=== PATIENT | female | born 1970 | race Caucasian/White ===

== ENCOUNTER 2019-10-13 21:39 | Emergency (ER) | payer SELFPAY ==
--- NOTE | 2019-10-13 22:59 | ER ---
Nurse's Notes [facility] Name: Hellen Negron Age: 49 yrs Sex: Female : 1970 Arrival Date: 10/13/2019 Time: 21:42 Bed 27 Private MD: Diagnosis: Presentation: 10/12 21:52 Chief complaint: Patient states: "I was at work and i had a feeling that I was going to [facility] pass out. they sat me down and took my blood pressure and told me it was high. they called the EMT's and they suggested I have it come checked out.". Coronavirus screen: Proceed with normal triage. Ebola Screen: Patient negative for fever greater than or equal to 101.5 degrees Fahrenheit, and additional compatible Ebola Virus Disease symptoms. Initial Sepsis Screen: Does the patient meet any 2 criteria? No. Patient's initial sepsis screen is negative. Does the patient have a suspected source of infection? No. Patient's initial sepsis screen is negative. Risk Assessment: Do you want to hurt yourself or someone else? Patient reports no desire to harm self or others. Onset of symptoms was October 13, 2019. 21:52 Method Of Arrival: Ambulatory jd3 21:52 Acuity: MADDIE 3 jd3 Triage Assessment: 22:06 General: Appears in no apparent distress. comfortable, Behavior is calm, cooperative. ls4 Pain: Denies pain. 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 - Social history:: Smoking status: Patient reports the use of cigarette tobacco products, denies chronic smoking, but will smoke occasionally. Screenin:05 Abuse screen: Denies threats or abuse. Denies injuries from another. Nutritional ls4 screening: No deficits noted. Tuberculosis screening: No symptoms or risk factors identified. Fall Risk None identified. Assessment: 22:45 Reassessment: PT CAME OUT OF ROOM AND ASKED WHERE THE SMOKING AREA WAS. I LET PATIENT ls4 KNOW THAT THE FACILITY IS NON SMOKING, BUT I CAN GET HER A NICOTINE PATCH IF SHE IS UNCOMFORTABLE. PT ANSWERED SHARPLY "I DONT WANT A PATCH, I WANT TO GO SMOKE". 22:54 Reassessment: PT STATES THAT SHE DOES NOT WANT TO BE HERE. SHE CAME BECAUSE [facility] MADE HER. SHE STATES THAT SHE DOES NOT HAVE INSURANCE AND CANNOT AFFORD TO GET A BILL AND JUST WANTS TO GO. COUNSELED PT ON RISKS OF HYPERTENSION AND POSSIBLE REASONS TO BECOME DIZZY AND HYPERTENSIVE. PT STATES THAT SHE FEELS FINE AND SHE WAS UPSET WHEN SHE BECAME DIZZY AND PT STATES THAT SHE DOES NOT WANT TO BE EVALUATED. CALIXTO TOTH NOTIFIED AND PT SIGNED AMA. PT AMBULATED TO EXIT WITHOUT DIFFICULTY. Vital Signs: 21:56 BP 170 / 87; Pulse 75; Resp 17 S; Temp 97.0(TE); Pulse Ox 98% on R/A; Weight 68.04 kg jd3 (R); Height 5 ft. 4 in. (162.56 cm) (R); Pain 0/10; 22:54 BP 174 / 86; Pulse 72; Resp 16; Pulse Ox 99% on R/A; Pain 0/10; ls4 21:56 Body Mass Index 25.75 (68.04 kg, 162.56 cm) jd3 ED Course: 21:42 Patient arrived in ED. ds1 21:54 Triage completed. jd3 21:57 Arm band placed on. jd3 22:01 Calixto Toth PA is PHCP. [facility] 22:01 Marcelo Martins MD is Attending Physician. [facility] 22:04 Mirna Walters, RN is Primary Nurse. ls4 22:05 No apparent distress. ls4 22:05 Patient has correct armband on for positive identification. Bed in low position. Call ls4 light in reach. Side rails up X 1. 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 Pulse ox on. NIBP on. Verbal reassurance given. 22:05 No provider procedures requiring assistance completed. ls4 22:59 XRAY Chest (1 view) In Process Unspecified. EDMS Administered Medications: No medications were administered Outcome: 22:59 Patient left the ED. ls4 Signatures: Dispatcher [employer] EDMS Calixto Toth PA PA jmm Sanford Puja ds1 Emanuel Noriega, RN RN jd3 Mirna Walters RN RN ls4
--- NOTE | 2019-10-13 22:59 | EDPHYS ---
Physician Documentation [facility] Name: Hellen Negron Age: 49 yrs Sex: Female : 1970 Arrival Date: 10/13/2019 Time: 21:42 Bed 27 Private MD: ED Physician Marcelo Martins HPI: 10/12 22:40 This 49 yrs old Female presents to ER via Ambulatory with complaints of High jmm Blood Pressure. 22:40 The patient has elevated blood pressure and discovered this. Onset: The jmm symptoms/episode began/occurred gradually, today. This is a 49 year old female with no chronic medical conditions that presents to the ED with complaints of lightheartedness which occurred earlier this evening. Patient was made aware her BP was elevated. Patient denies chest pain, shortness of breath. . 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 - Social history:: Smoking status: Patient reports the use of cigarette tobacco products, denies chronic smoking, but will smoke occasionally. ROS: 22:40 Constitutional: Negative for fever, chills, and weight loss, Cardiovascular: Negative jmm for chest pain, palpitations, and edema, Respiratory: Negative for shortness of breath, cough, wheezing, and pleuritic chest pain. 22:40 Neuro: Positive for near syncope. 22:40 All other systems are negative. Exam: 22:40 Constitutional: This is a well developed, well nourished patient who is awake, alert, jmm and in no acute distress. Head/Face: atraumatic. Eyes: EOMI, no conjunctival erythema appreciated ENT: Moist Mucus Membranes Neck: Trachea midline, Supple Chest/axilla: Normal chest wall appearance and motion. Cardiovascular: Regular rate and rhythm. No edema appreciated Respiratory: Normal respirations, no respiratory distress appreciated Abdomen/GI: Non distended, soft Back: Normal ROM Skin: General appearance color normal MS/ Extremity: Moves all extremities, no obvious deformities appreciated, no edema noted to the lower extremities Neuro: Awake and alert, normal gait Psych: Behavior is normal, Mood is normal, Patient is cooperative and pleasant Vital Signs: 21:56 BP 170 / 87; Pulse 75; Resp 17 S; Temp 97.0(TE); Pulse Ox 98% on R/A; Weight 68.04 kg jd3 (R); Height 5 ft. 4 in. (162.56 cm) (R); Pain 0/10; 22:54 BP 174 / 86; Pulse 72; Resp 16; Pulse Ox 99% on R/A; Pain 0/10; ls4 21:56 Body Mass Index 25.75 (68.04 kg, 162.56 cm) jd3 MDM: 22:19 Patient medically screened. [facility] 22:58 Refusal of service: The patient/guardian displays adequate decision making capability [facility] and despite a detailed discussion of alternatives, benefits, risks, and consequences refuses: all lab tests. ED course: I explained the need for further evaluation for a presyncopal episode. Patient appears competent to make rational decisions. Patient refused further evaluation and signed out against medical advice. . 10/12 22:05 Order name: XRAY Chest (1 view) [facility] 10/12 22:05 Order name: EKG; Complete Time: 22:06 [facility] 10/12 22:05 Order name: O2 Per Protocol; Complete Time: 22:37 [facility] 10/12 22:05 Order name: O2 Sat Monitoring; Complete Time: 22:37 [facility] 10/12 22:38 Order name: Urine Dipstick-Ancillary (obtain specimen); Complete Time: 22:44 [facility] Administered Medications: No medications were administered Disposition: 23:03 Co-signature as Attending Physician, Marcelo Martins MD. memo Disposition: 10/13/19 22:59 Patient has left against medical advice. - Patients states they are going to Home. - Condition is Undetermined. Signatures: Dispatcher [employer] EDMS Marcelo Martins MD MD pkl Mickail, Joel, PA PA jmm Davies, Jonathon, RN RN jd3 Mirna Walters RN RN ls4
--- NOTE | 2019-10-13 23:07 | RAD REPORT ---
EXAM DESCRIPTION: RAD - Chest Single View - 10/13/2019 10:59 pm CLINICAL HISTORY: presyncope Chest pain. COMPARISON: No comparisons FINDINGS: Portable technique limits examination quality. The lungs are grossly clear. The heart is normal in size. No displaced fractures. IMPRESSION: No acute intrathoracic process suspected.
[2019-10-14 14:07] VITALS: TEMP 97
[2019-10-14 14:08] VITALS: BP 174/86; O2SAT 99
== END 2019-10-13 22:59 | disposition left against medical advice (07) ==
LOC: ER 21:39
DX: R03.0 Elevated blood-pressure reading, without diagnosis of hypertension (principal); R55 Syncope and collapse; F17.210 Nicotine dependence, cigarettes, uncomplicated
CPT/HCPCS: 71045; 99284

== ENCOUNTER 2019-10-19 09:25 | Emergency (ER) | payer SELFPAY ==
[2019-10-19 10:05] LABS: Absolute Lymphocytes (CBC) 1.4 K/uL (0.7-4.9); Basophils % 1.4 % (0-1.3); Hematocrit 39.6 % (36.0-45.0); Lymphocytes % 23.1 % (15.3-44.8); MPV 8.1 fL (7.6-11.3); RBC Red Blood Cell Count 4.66 M/uL (3.86-4.86)
[2019-10-19 10:16] LABS: BUN Blood Urea Nitrogen 12 mg/dL (7-18); Bicarbonate 26 mmol/L (21-32); Glucose Level 96 mg/dL (74-106); NT PRO-BNP 511 pg/mL (<125); Potassium 4.1 mmol/L (3.5-5.1); Sodium Level 142 mmol/L (136-145); Troponin (Emerg Dept Use Only) < 0.02 ng/mL (0.0-0.045)
--- OUTSIDE RECORDS SUMMARY | 2019-10-19 11:03 | XMS REPORT | Clinical Summary ---
:1970 Author Organization [facility] Address [address] [place] [place] [address] Care Team Providers Name Role Phone Kash Irizarry [facility] [place] Bullet Assembly Press Operator Emma Pierce [facility] [place] Bullet Assembly Press Operator Unavailable Charbel Lozano RN Clinical Nurse Report Analyst Unavailable Dylan Lee [facility] [place] Bullet Assembly Press Operator Unavailable Ruthie Poole [facility] [place] Bullet Assembly Press Operator Unavailable SHANTANU Porras Clinical Nurse Report Analyst Unavailable Allergies No Known Allergies Medications Medication Sig Dispensed Refills Start Date End Date Status busPIRone (BUSPAR) 15 Take 1 tablet by 270 tablet 1 09/16/2014 Active mg tabletIndications: mouth 3 times Bipolar 2 disorder daily. Additional Information Patient not taking. Reported on 08/25/2019 8:10 AM traZODone (DESYREL) 100 mg Take 1.5 tablets by 135 tablet 1 Active tabletIndications: Bipolar 2 mouth at bedtime disorder nightly. Additional Information Patient not taking. Reported on 08/25/2019 8:10 AM risperiDONE (RISPERDAL) 1 mg Take 1 tablet by 180 tablet 1 Active tabletIndications: Bipolar 2 mouth 2 times daily. disorder Additional Information Patient not taking. Reported on 08/25/2019 8:10 AM lisinopril (PRINIVIL) 10 mg Take 1 tablet by 90 tablet 2 10/19 Active tabletIndications: HTN mouth daily. (hypertension) Additional Information Patient not taking. Reported on 08/25/2019 8:10 AM dicyclomine (BENTYL) 10 mg Take 1 capsule by 10 capsule 0 04/26 Active capsuleIndications: Generalized mouth 4 times daily abdominal pain (before meals and nightly). Additional Information Patient not taking. Reported on 08/25/2019 8:10 AM dexlansoprazole Take 1 90 capsule 0 08/25/2019 Ac tive (DEXILANT) 60 mg delayed capsule by release mouth daily. capsuleIndications: Abdominal pain, epigastric metoclopramide (REGLAN) Take 1 tablet 15 tablet 0 08/25/2019 Active 10 mg tabletIndications: by mouth Abdominal pain, every 8 hours epigastric, Nausea as needed for Other (nausea). gabapentin (NEURONTIN) Take 1 60 capsule 3 10/19/201406/04 / Discontinued 300 mg capsule by 2019 (Therapy capsuleIndications: Lower mouth 2 times completed) back pain daily. benzonatate (TESSALON Take 1 20 capsule 0 01/13/201901/23/ PERLES) 100 mg capsule by 2018 capsuleIndications: URI mouth 3 times with cough and congestion daily as needed for up to 10 days for Cough. ondansetron (ZOFRAN) 4 mg Take 1 tablet 20 tablet 0 05/17/201908/24/ Discontinued tabletIndications: by mouth 2019 ( Therapy Generalized abdominal every 8 hours completed) pain as needed for up to 10 doses for Nausea. nitrofurantoin Take 1 14 capsule 0 05/17/2019 Exp ired mono/m-crystals capsule by 2019 (MACROBID) 100 mg mouth 2 times capsuleIndications: Acute daily for 7 cystitis without days. hematuria sulfamethoxazole-trimetho Take 1 tablet 20 tablet 0 06/03/201906/14/ prim (BACTRIM DS) 800-160 by mouth 2 202 0 mg per tabletIndications: times daily Abscess of chin for 10 days. naproxen (NAPROSYN) 500 Take 1 tablet 30 tablet 0 06/03/2019 0 06/19/ mg tabletIndications: by mouth 2019 Right wrist pain times daily (with meals) for 15 days. 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 ATTENDANT Nausea; Chronic right-s ided low back pain with right-sided sciatica 07/28/2019 Telephonic Family Practice Jeison Be X, NO SHOW E NCOUNTER Encounter (Primary Dx) 07/01/2019 Orders Only Family Practice Jeison Be, Bipolar 2 disorder 06/03/2019 Office Visit Family Practice Jeison Be, Abdominal pain, epigastric (Primary Dx); Abscess of chin ; Right wrist virgen n; Bipolar 2 disor zi; Screening exami [facility] for infectious disease; Screening for c olon cancer 06/02/2019 Refill Psychiatry Charly, Bipolar 2 disor zi MD Yadira 06/02/2019 Refill Psychiatry Charly Bipolar 2 disor zi MD Yadira 06/02/2019 Refill Family Practice Venkata Alan Lower back pain MD Harjinder 06/02/2019 Refill Barbara Mills Generalized MD Home abdominal pain 05/18/2019 - Emergency Emergency Medicine 05/19/2019 05/17/2019 Emergency Emergency Medicine Barbara Mills lized abdominal pain (Primary Dx); MD Home Acute cystitis without hematuria 01/13/2019 Emergency Emergency Medicine Gerson Paiz wi th cough and congestion (Primary Dx); MD Dario Wheezing after 10/18/2018 Family History Medical History Relation Name Comments Heart Father Hypertension Father Heart Maternal Grandfather Heart Maternal Grandmother Hypertension Maternal Grandmother Hypertension Mother Heart Paternal Grandfather Heart Paternal Grandmother Relation Name Status Comments Daughter Alive Father Alive Maternal Grandfather Maternal Grandmother Mother Alive Paternal Grandfather Paternal Grandmother Son Alive Social History Tobacco Use Types Packs/Day Years Used Date Current Every Day Smoker Cigarettes 0.5 30 Smokeless Tobacco: Never Used Tobacco Cessation: Ready to Quit: No; Co unseling Given: Yes Comments: reports currently with smoking cessation progrm thru [facility] Alcohol Use Drinks/Week oz/Week Comments Yes 1 Cans of beer 1.0 1 beer every 3 m [facility] Alcohol Habits Answer Date Recorded How often do you have a drink containing alcohol? Monthly or less 06/03/2019 How many drinks containing alcohol do you have on a 1 or 2 06/03/2019 typical day when you are drinking? How often do you have six or more drinks on one Not asked occasion? Sex Assigned at Date Recorded Not on file Job Start Date Occupation Industry Not on file Not on file Not on file Travel History Travel Start Travel End No recent travel history available. Last Filed Vital Signs Vital Sign Reading Time Taken Comments Blood Pressure 138/85 06/03/2019 8:26 AM CDT Pulse 77 06/03/2019 8:26 AM CDT Temperature 36.9 C (98.5 F) 06/03/2019 8:26 AM CDT Respiratory Rate 18 06/03/2019 8:26 AM CDT Oxygen Saturation 97% 05/18/2019 8:31 PM ORE CR[employer]ING DUST COLLECTOR Inhaled Oxygen Concentration - - Weight 69.9 kg (154 lb) 06/03/2019 8:26 AM CDT Height 162.6 cm (5' 4") 06/03/2019 8:26 AM CDT Body Mass Index 26.43 06/03/2019 8:26 AM CDT Plan of Treatment Health Maintenance Due Date Last Done Comments Cervical Cancer Scrn (3 Yrs) 1989 Breast Cancer Scrn (Yearly) 2008 Colorectal Cancer Scrn Annual (FIT/FOBT) Age 50 to 75 2018 Procedures Procedure Name Priority Date/Time Associated Diagnosis Comme nts [facility]G EKG PROC 12 Routine 05/18/2019 8:37 Results for this LEAD EKG; TRACING PM [employer] procedure are in ONLY the results section. CT ABDOMEN AND STAT 05/17/2019 3:49 Generalized Results f or this PELVIS CONTRAST PM [employer] abdominal pain procedure are in the results section. VBG POC Routine 05/17/2019 3:20 Results for this PM [employer] procedure are i n the results section. POCT URINE DIPSTICK STAT 05/17/2019 3:20 Resu lts for this - PM [employer] procedure are i n the results section. URINE CULTURE STAT 05/17/2019 3:07 Results fo r this PM [employer] procedure are i n the results section. URINALYSIS STAT 05/17/2019 3:07 Results for this PM [employer] procedure are i n the results section. URINALYSIS STAT 05/17/2019 3:07 Results for this PM [employer] procedure are i n the results section. LACTIC ACID STAT 05/17/2019 2:58 Results for this PM [employer] procedure are i n the results section. VBG POC Routine 05/17/2019 2:53 Results for this PM [employer] procedure are i n the results section. BMP POC Routine 05/17/2019 2:51 Results for this PM [employer] procedure are i n the results section. CREATININE POC Routine 05/17/2019 2:51 Results f or this PM [employer] procedure are i n the results section. TROPONIN I POC Routine 05/17/2019 2:50 Results f or this PM [employer] COL[employer]OR procedure are i n the results section. BEDSIDE ULTRASOUND Routine 05/17/2019 2:49 Generalized Resul ts for this PM [employer] abdominal pain procedure are in the results section. LIPASE Add-on 05/17/2019 2:22 Results for this PM [employer] procedure are i n the results section. CBC STAT 05/17/2019 2:22 Results for this PM [employer] COL[employer]OR procedure are i n the results section. LIVER PROFILE STAT 05/17/2019 2:22 Results fo r this PM [employer] procedure are i n the results section. CBC/DIFF STAT 05/17/2019 2:22 Results for this PM [employer] COL[employer] procedure are i n the results section. ECHG EKG PROC 12 Routine 05/17/2019 1:59 Results for this LEAD EKG; TRACING PM [employer]ING [employer] COL[employer]OR procedure are in ONLY the results section. XRAY CHEST 2 VIEWS STAT 01/12/2019 10:25 Wheezing Resul ts for this PM CDT procedure are i n the results section. 12 LEAD EKG Routine 01/12/2019 8:37 Results for this PM CDT procedure are i n the results section. after 10/18/2018 Results 12 LEAD EKG (05/18/2019 8:37 PM ORE CR[employer]ING DUST COLLECTOR) 12 LEAD EKG FOR [facility] Test Date: 2019-05-18 Pat Name: ROCKY NEGRON Depart ent: [id number] Room: Gender: F Developer Advocate: [id number] : 1971-04- 4 Requested By: ALEJANDRA RODRIGUEZ Order Number: [id number] Reading MD: Elio Grullon Measu rements Intervals [place] Rate: 71 P: 70 LA: 142 QRS: 62 QRSD: 83 T: 73 QT: 421 QTc: 457 Interpretive S tatements SINUS RHYTHM LEFT VENTRICULAR HYPERTROPHY NONSPECIFIC T WAVE ABNORMALITY POOR R WAVE PROGRESSION BASELINE ARTIFACT Electronically Signed On 05-21-2019 9:14:17 ORE [employer]ING DUST COLLECTOR by Elio Grullon Specimen Performing Organization Address City/State/Zipcode Phone Number [facility] CT ABDOMEN AND PELVIS CONTRAST (05/17/2019 3:49 PM ORE CRUSHING DUST COLLECTOR) Specimen Impressions Performed At IMPRESSION: SMS 1. Mild circumferential bladder wall t hickening may be due to underdistention, however correlation wit h urinalysis recommended. 2. Sigmoid diverticulosis without dive rticulitis. 3. Nonobstructing tiny calculus in the upper pole of left kidney. Dictated By: Alejandra Borrego MD, 05/17/2019 4:06 PM I have reviewed the study and agree with the findings in this report. Signed By: Wesley Cabrera MD, 020 4:22 PM Narrative Performed At EXAM: CT ABDOMEN AND PELVIS WITH CONTRAS T [facility] DATE: 05/17/2019 3:51 PM INDICATION: Abd pain, acute, generalized . Generalized abdominal pain COMPARISON: None. TECHNIQUE: Volumetric CT of the abdomen and pelvis is acquired following the intravenous administration of contra st. Axial, coronal and sagittal images are provided. IV contrast: 100 mL Omnipaque 300 Enteric contrast: None. DLP: 978 mGy-cm FINDINGS: Lower thorax: Clear. Liver: Normal. Biliary tree: No intra- or extrahepatic biliary ductal dilation. Gallbladder: Normal. Pancreas: Normal. Spleen: Normal. Adrenals: Normal. Kidneys and ureters: Punctate 2 to 3 mm nonobstructing stone noted in the left superior renal pelvis. Bladder: Mild circumferential bladder wa ll thickening noted. Reproductive organs: Uterus and adnexa a re unremarkable. A Bartholin's cyst is noted in the cervix. Gastrointestinal tract: Stomach: Normal. Small bowel: Normal. Colon: Mucosal thickening in the ascendi ng and transverse colon is likely due to underdistention. Sigmoid d iverticulosis without diverticulitis. Appendix: Not seen. No inflammation. Peritoneum, mesentery and retroperitoneu m: No free air, ascites or loculated fluid. Lymph nodes: Normal. Vasculature: Aorta and branches: Normal. IVC and veins: Normal. Portal vasculature: Normal. Bones: No acute abnormality. Degenerativ e changes of lumbar spine centered at L5-S1 with endplate sclerosi s, intervertebral disc space narrowing, and facet arthropathy. Bilate ral neural foraminal narrowing is noted L5. Soft tissues: Tiny fat-containing umbili toy hernia. Procedure Note Interface, Rad/Mammog In - 05/17/2019 4 :27 PM ORE CR[employer]ING DUST COLLECTOR EXAM: CT ABDOMEN AND PELVIS WITH CONTRAST DATE: 05/17/2019 3:51 PM INDICATION: Abd pain, acute, generalized . Generalized abdominal pain COMPARISON: None. TECHNIQUE: Volumetric CT of the abdomen and pelvis is acquired following the intravenous administration of contra st. Axial, coronal and sagittal images are provided. IV contrast: 100 mL Omnipaque 300 Enteric contrast: None. DLP: 978 mGy-cm FINDINGS: Lower thorax: Clear. Liver: Normal. Biliary tree: No intra- or extrahepatic biliary ductal dilation. Gallbladder: Normal. Pancreas: Normal. Spleen: Normal. Adrenals: Normal. Kidneys and ureters: Punctate 2 to 3 mm nonobstructing stone noted in the left superior renal pelvis. Bladder: Mild circumferential bladder wa ll thickening noted. Reproductive organs: Uterus and adnexa a re unremarkable. A Bartholin's cyst is noted in the cervix. Gastrointestinal tract: Stomach: Normal. Small bowel: Normal. Colon: Mucosal thickening in the ascendi ng and transverse colon is likely due to underdistention. Sigmoid d iverticulosis without diverticulitis. Appendix: Not seen. No inflammation. Peritoneum, mesentery and retroperitoneu m: No free air, ascites or loculated fluid. Lymph nodes: Normal. Vasculature: Aorta and branches: Normal. IVC and veins: Normal. Portal vasculature: Normal. Bones: No acute abnormality. Degenerativ e changes of lumbar spine centered at L5-S1 with endplate sclerosi s, intervertebral disc space narrowing, and facet arthropathy. Bilate ral neural foraminal narrowing is noted L5. Soft tissues: Tiny fat-containing umbili toy hernia. IMPRESSION IMPRESSION: 1. Mild circumferential bladder wall th ickening may be due to underdistention, however correlation wit h urinalysis recommended. 2. Sigmoid diverticulosis without diver ticulitis. 3. Nonobstructing tiny calculus in the upper pole of left kidney. Dictated By: Alejandra Borrego MD, 05/17/2019 4:06 PM I have reviewed the study and agree with the findings in this report. Signed By: Wesley Cabrera MD, 020 4:22 PM Performing Organization Address City/State/Zipcode Phone Number SMS POCT VBG POC docked device (05/17/2019 3:20 PM O[employer]ING [employer] COLLECTOR)Only the most recent of2 resultswithin the time period is included. Pathologist Sig nature pH, Neo POC 7.42 7.33 - 7.43 [facility] pCO2,Neo POC 41.4 38 - 50 mmHg [facility] PO2, Venous POC (BKR) 82 (H) 50 - 75 mm Hg [facility] Ionized Calcium POC 1.09 (L) 1.15 - 1.29 [facility] mmol/L HCO3, Neo POC 27 (H) 22 - 26 mmol/L [facility] TCO2 POC 28 21 - 32 mmol/L [facility] Base Excess Neo POC 2 mmol/L [facility] Shivam's Test GURU [facility] Sample Type IVEN [facility] Site RRADIA [facility] % Sat, Neo POC 96 % [facility] Specimen Blood, venous Performing Organization Address [facility] Phone Number [facility] [address] [place] [address] POCT Urine - (05/17/2019 3:20 PM ORE [employer]ING DUST COLLECTOR) Pathologist Sig [facility] Control pass negative Urinalysis (05/17/2019 3:07 PM [employer]ING DUST COLLECTOR) Pathologist Sig nature Color Yellow Colorless, Straw, [facility] Yellow Clarity Clear Clear [facility] Spec Cope, Ur 1.008 1.001 - 1.035 [facility] pH, Ur 7.0 5.0 - 8.0 [facility] Protein, Ur Negative Negative mg/dL [facility] Glucose, Ur Negative Negative mg/dL [facility] Ketone, Ur Negative Negative mg/dL [facility] Bilirubin, Ur Negative Negative mg/dL [facility] Nitrite, Ur Positive (A) Negative [facility] Leukocyte 1+ (A) Negative mg/dL [facility] Blood, Ur 2+ (A) Negative mg/dL [facility] RBC 5 (H) 0 - 4 /HPF [facility] WBC 2 0 - 5 /HPF [facility] Epithelial Cell 1 <=1 /HPF [facility] Mucous Present (A) None seen /HPF [facility] Bacteria Many (A) None seen /HPF [facility] Urobilinogen, Ur <1.0 <1.0 EU/dL [facility] Specimen Urine Performing Organization Address [facility] Phone Number [facility] [address] [place] [address] Urine Culture (05/17/2019 3:07 PM [employer] COLLECTOR) Pathologist Sig [facility] Urine Culture Urogenital ryan [facility] Specimen Urine - Clean Catch [place] Performing Organization Address [facility] Phone Number [facility] [address] [place], [place] [phone] Lactic Acid (05/17/2019 2:58 PM O[employer] COLLECTOR) Pathologist Sig [facility] Lactic Acid 1.5 0.5 - 2.2 mmol/L [facility] Specimen Blood Performing Organization Address [facility] Phone Number [facility] [address] [place] [phone] POCT CREATININE POC docked device (05/17/2019 2:51 PM O[employer] COLLECTOR) Pathologist [facility] Creatinine POC 0.8 0.6 - 1.3 mg/dL [facility] GFR, Estimated 86 (L) >=90 mL/min/1.73 m2 [facility] Specimen Blood, venous Performing Organization Address [facility] Phone Number [facility] [address] [place] [address] POCT BMP POC docked device (05/17/2019 2:51 PM O[employer] CR[employer]ING DUST COLLECTOR) Pathologist Sig [facility] Sodium POC 136 136 - 145 mmol/L [facility] Potassium POC 5.2 (H) 3.5 - 5.1 mmol/L [facility] Chloride POC 102 98 - 107 mmol/L [facility] TCO2 POC 28 21 - 32 mmol/L [facility] Urea Nitrogen POC 12 7 - 18 mg/dL [facility] Glucose POC 109 (H) 74 - 106 mg/dL [facility] Hemoglobin POC 16.3 (H) 12 - 16 g/dL [facility] Hematocrit POC 48.0 (H) 37.0 - 47.0 % [facility] Specimen Blood, venous Performing Organization Address [facility] [place] Phone Number [facility] [address] [place] [phone] POCT TROPONIN I POC docked device (05/17/2019 2:50 PM [employer]ING [employer] COLLECTOR) Pathologist Sig [facility] Troponin POC 0.01 0.00 - 0.08 ng/mL [facility] Specimen Blood, venous Performing Organization Address [facility] Phone Number [facility] [address] [place] [address] Bedside Ultrasound (05/17/2019 2:49 PM O[employer] COL[employer]OR) Narrative Performed At Jordan Bee, MD 020 8:34 PM Bedside Ultrasound Date/Time: 05/17/2019 3:53 PM Performed by: Jordan Bee ResidentM D Authorized by: Barbara Mills MD Consent: Consent obtained: Verbal Consent given by: Patient Alternatives discussed: Delayed treatment, no rosa elena atment and alternative treatment Indications: Indications: Abdominal pain Comments: Bedside Gallbladder US. Indication - abdominal pain. Axial and longitudinal view obtained. No stones or sludge visual ized. Sono Rico's neg. No pericholecystic fluid. No gallbladder wall thi ckening. Performed and interpreted by me. CBC/Diff (05/17/2019 2:22 PM ORE [employer]ING D[employer] COLLECTOR) Pathologist Sig nature WBC 12.6 (H) 4.5 - 11.0 K/uL [facility] RBC 5.48 (H) 4.20 - 5.40 M/uL [facility] Hemoglobin 15.5 12.0 - 16.0 g/dL [facility] Hematocrit 47.9 (H) 37.0 - 47.0 % [facility] MCV 87.4 82.0 - 92.0 fL [facility] MCH 28.3 27.0 - 32.0 pg [facility] MCHC 32.4 32.0 - 36.0 g/dL [facility] RDW 41.1 36.4 - 46.3 fL [facility] Platelet 290 150 - 400 K/uL [facility] Mean Platelet Volume 10.5 9.4 - 12.4 fL [facility] Percent NRBC 0.0 % [facility] Neutrophil 68.9 34.0 - 70.0 % [facility] Lymphs 20.5 20.0 - 50.0 % [facility] Monocytes 8.1 5.0 - 12.0 % [facility] Eos 1.4 0.7 - 5.0 % [facility] Basos 0.8 0.1 - 1.2 % [facility] Immature Granulocytes 0.3 0.0 - 0.5 % [facility] Neutrophils (Absolute) 8.65 (H) 1.56 - 6.13 K/uL [facility] Lymphs (Absolute) 2.57 1.18 - 3.74 K/uL [facility] Monocytes(Absolute) 1.02 (H) 0.24 - 0.36 K/uL [facility] Eos (Absolute) 0.17 0.04 - 0.36 K/uL [facility] Baso (Absolute) 0.10 (H) 0.01 - 0.08 K/uL [facility] Immature Grans (Abs) 0.04 (H) 0.00 - 0.03 K/uL [facility] Absolute NRBC 0.00 K/uL [facility] Specimen Blood Performing Organization Address [facility] Phone Number [facility] [address] [place], [place] [phone] Liver Profile (05/17/2019 2:22 PM O[employer] COLLECTOR) Pathologist Sig nature Total Protein 7.6 6.0 - 8.3 g/dL [facility] Bilirubin, Total 0.6 0.2 - 1.2 mg/dL [facility] Alkaline Phosphatase 101 34 - 104 U/L [facility] AST 29 13 - 39 U/L [facility] Direct Bilirubin 0.1 0.0 - 0.2 mg/dL [facility] ALT 15 7 - 52 U/L [facility] Albumin 4.6 3.7 - 5.3 g/dL [facility] Specimen Blood Performing Organization Address [facility] [place] Phone Number [facility] [address] [place] [phone] Lipase (05/17/2019 2:22 PM O[employer]ING [employer] COLLECTOR) Pathologist Sig nature Lipase 51 11 - 82 U/L [facility] Specimen Blood Performing Organization Address [facility] Phone Number [facility] [address] [place] [address] [phone] 12 LEAD EKG (05/17/2019 1:59 PM ORE [employer]ING DUST COLLECTOR) 12 LEAD EKG FOR [facility] SMS Test Date: 2019-05-17 Pat Name: ROCKY NEGRON Depart ent: [id number] Room: Gender: F Developer Advocate: [id number]/CP : 1970 Requested By: DORIS Saleem Order Number: [id number] Reading MD: Laura Stafford Measu rements Intervals [place] Rate: 73 P: 68 LA: 140 QRS: 59 QRSD: 81 T: 68 QT: 409 QTc: 451 Interpretive S tatements SINUS RHYTHM VOLTAGE CRITERIA FOR LVH Electronically Signed On 05-17-2019 16:54:46 [employer]RE [employer]ING DUST COLLECTOR by Xiomy Stafford Specimen Performing Organization Address City/State/Zipcode Phone Number SMS XRAY CHEST 2 VIEWS (01/12/2019 10:25 PM CDT) Specimen Impressions Performed At IMPRESSION: SMS 1. No acute abnormality. This [facility] radiology report is a prelimin amor resident dictation until finalized by an attending. Changes to this prelimina ry report may occur in an additional preliminary or finalize d version. I have reviewed the study and agree with the findings in this report. Signed By: Gamal Santos M.D., 12/24 10:39 PM Narrative Performed At EXAM: XR CHEST 2 VIEWS SMS DATE: 01/12/2019 10:25 PM INDICATION: cough. Wheezing COMPARISON: Chest radiograph dated 2013 TECHNIQUE: PA and lateral chest radiogra phs FINDINGS: Lines, tubes and hardware: None. Lungs and pleura: No pulmonary edema. Th e lungs are clear and well-inflated. The costophrenic sulci ar e sharp, without pleural effusion. No pneumothorax is identified. Heart and mediastinum: The heart size is normal for technique. The mediastinal contours are normal. Bones and soft tissues: No acute abnorma lity. Procedure Note Interface, Rad/Mammog In - 01/12/2019 10 :44 PM CDT EXAM: XR CHEST 2 VIEWS DATE: 01/12/2019 10:25 PM INDICATION: cough. Wheezing COMPARISON: Chest radiograph dated 2013 TECHNIQUE: PA and lateral chest radiogra phs FINDINGS: Lines, tubes and hardware: None. Lungs and pleura: No pulmonary edema. Th e lungs are clear and well-inflated. The costophrenic sulci ar e sharp, without pleural effusion. No pneumothorax is identified. Heart and mediastinum: The heart size is normal for technique. The mediastinal contours are normal. Bones and soft tissues: No acute abnorma lity. IMPRESSION IMPRESSION: 1. No acute abnormality. This [facility] radiology report is a prelimin amor resident dictation until finalized by an attending. Changes to t his preliminary report may occur in an additional preliminary or finalize d version. I have reviewed the study and agree with the findings in this report. Signed By: Gamal Santos M.D., 12/24 10:39 PM Performing Organization Address City/State/Zipcode Phone Number SMS 12 LEAD EKG (01/12/2019 8:37 PM CDT) 12 LEAD EKG FOR [facility] SMS Test Date: 2019-01-12 Pat Name: ROCKY NEGRON Departm ent: [id number] Room: Gender: Developer Advocate: SWATHI : 1971-04-1 4 Requested By: SANG Corbin Order Number: [id number] Reading MD: Elio Grullon [employer] re[employer] Intervals [place] Rate: 72 P: 58 LA: 125 QRS: 65 QRSD: 76 T: 67 QT: 382 QTc: 418 Interpretive S tatements SINUS RHYTHM MINIMAL VOLTAGE CRITERIA FOR LVH, CONSIDER NORMAL VARI ANT Electronically Signed On 01-16-2019 11:36:35 CDT by Harika Grullon Specimen Performing Organization Address City/State/Zipcode Phone Number [facility] after 10/18/2018 Insurance Payer Benefit Plan / Subscriber ID Effective Phone Address T ype Group Dates [facility] xxxxxx 2019- [phone] [place] [address] [facility] PLAN FINANCIAL xxxxxx 2019- [phone] [employer] [address] [place] [address] Rocky Negron Poli Self 1970 [address] (Home) [place], [place] [phone] (Work)
--- OUTSIDE RECORDS SUMMARY | 2019-10-19 11:04 | XMS REPORT | Continuity of Care Document ---
:1970 Author Organization [facility] t Address [address] [place] [address] Care Team Providers Name Role Phone Sia Bettencourt NP Attending Clinician [place] STEELE, X Attending Clinician Charly STEELE Attending Clinician Waqas STEELE, S Attending Clinician Gene STEELE, L Attending Clinician Unavailable Chencho STEELE, J Attending Clinician Payers Payer Name Policy Type Policy Effective Date Expiration Date Sour ce Number [place] [facility] xxxxxx 2019 2020 Hernandez PLANNING 00:00:00 23:59:59 Health [facility] [facility] INDIGENTxxxxxx-[id number] [phone] [address] [facility] PLANFINANCIAL xxxxxx 2019 2020 Hernandez ASSISTANCE 00:00:00 23:59:59 Health [phone] [place] [address] Problems Condition Condition Condition Status Onset Resolution Last Treating Co mments Source Name Details Category Date Date Treatment Clinician Date Essential Essential Disease Active Cedric ris hypertensi hypertensi 11-30 He alth on on 00:00: 00 Lower back Lower back Disease Active H arris pain pain 7-28 Health 00:00: 00 Fracture Fracture Disease Active 2013-0 Harri s of fourth of fourth 2-25 Heal th metacarpal metacarpal 00:00: bone bone 00 Hand Hand Disease Active [facility] fracture fracture 2-16 Health 00:00: 00 Sciatica Sciatica Disease Active Harri s 2-26 Health 00:00: 00 Bipolar 2 Bipolar 2 Disease Active [facility] disorder disorder Health Sleep Sleep Disease Active [facility] disorder disorder Health Cocaine Cocaine Disease Active [facility] Abuse, h/o Abuse, h/o He alth Tobacco Tobacco Disease Active [facility] abuse abuse Health Allergies, Adverse Reactions, Alerts This patient has no known allergies or adverse reactions. Family History Family Member Diagnosis Comments Start Date Stop Date Source Natural father [facility] lt Natural father Hypertension David Juarez eahalley Maternal grandfather [facility] Maternal grandmother [facility] Maternal grandmother Hypertension [facility] [employer] Natural mother Hypertension David wright Paternal grandfather [facility] Paternal grandmother [facility] is [facility] Social History Social Habit Start Date Stop Date Quantity Comments Source History of tobacco Cigarette Smoker [facility] use History [facility] Alcohol Binge Sex Assigned [facility] alth Cigarettes smoked 2019-08-25 2019-08-25 [facility] current (pack per 00:00:00 00:00:00 day) - Reported Cigarette 2019-08-25 2019-08-25 [facility] pack-years 00:00:00 00:00:00 Alcohol intake 2019-08-25 2019-08-[address] [facility]:00 00:00:00 of alcohol (finding) History [facility] 2019-06-03 2019-06-03 2 [facility] Alcohol Frequency 00:00:00 00:00:00 History [facility] 2019-06-03 2019-06-03 1 [facility] Alcohol Std Drinks 00:00:00 00:00:00 Alcohol Comment 2019-06-03 2019-06-[address] [facility] 00:00:00 00:00:00 months Tobacco Comment 2012-01-14 2012-01-14 [facility]00 with smoking cessation progrm thru [facility] Smoking Status Start Date Stop Date Source Current every day smoker 2019-08-25 00:00:00 [facility] Medications Ordered Filled Start Stop Current Ordering Indication Dosage Frequency Signature Comments Components Source Medication Medication Date Date Medication? Clinician (SIG) Name Name dexlansopra Yes Abdominal 60mg QD Take 1 Hernandez zole 08-24 pain, capsule by [facility] (DEXILANT) 00:00: epigastric mouth 60 mg 00 daily. delayed release capsule metoclopram Yes Nausea 10mg Take 1 Dean rris raven 602 tablet by [facility] (REGLAN) 10 00:00: mouth mg tablet 00 every 8 hours as needed for Other (nausea). naproxen 2019- No Right wrist 500mg Take 1 [facility] (NAPROSYN) 06-02 pain tablet by [facility] 500 mg 00:00: 23:59 mouth 2 tablet 00 :00 times daily (with meals) for 15 days. sulfamethox 2019- No Abscess of 1{tbl} Q.5D Take 1 [facility] azole-trime 06-02 chin [facility] 23:59 mouth 2 (BACTRIM 00 :00 times DS) 800-160 daily for mg per 10 days. tablet dicyclomine Yes Generalized 10mg Take 1 [facility] (BENTYL) 10 05-17 abdominal capsule by [facility] mg capsule 00:00: pain mouth 4 00 times daily (before meals and nightly). ondansetron 2019- No Generalized 4mg Take 1 [facility] (ZOFRAN) 4 05-17 abdominal tablet by [facility] mg tablet 00:00: 00:00 pain mouth 00 :00 every 8 hours as needed for up to 10 doses for Nausea. nitrofurant 2019- No Acute 100mg Q.5D Take 1 H arris oin 05-17 cystitis capsule by [facility] mono/m-jewell 00:00: 23:59 without mouth 2 tals 00 :00 hematuria times (MACROBID) daily for 100 mg 7 days. capsule benzonatate 2018-03- No URI with 100mg Take 1 [facility] (TESSALON 01-23 cough and capsule by [facility] PERL) 100 00:00: 23:59 congestion mouth 3 mg capsule 00 :00 times daily as needed for up to 10 days for Cough. lisinopril Yes HTN 10mg QD Take 1 Harri s (PRINIVIL) 10-19 (hypertensi tablet by [facility] 10 mg 00:00: on) mouth tablet 00 daily. gabapentin 2020- No Lower back 300mg Q.5D Take 1 [facility] (NEURONTIN) 10-19 pain capsule by [facility] 300 mg 00:00: 00:00 mouth 2 capsule 00 :00 times daily. busPIRone Yes Bipolar 2 15mg Take 1 H [facility] (BUSPAR) 15 6-25 disorder tablet by [facility] mg tablet 00:00: mouth 3 00 times daily. traZODone Yes Bipolar 2 150mg Take 1.5 [facility] (DESYREL) 6-25 disorder tablets by [facility] 100 mg 00:00: mouth at tablet 00 bedtime nightly. risperiDONE Yes Bipolar 2 1mg Q.5D Take 1 [facility] (RISPERDAL) 6-25 disorder tablet by [facility] 1 mg tablet 00:00: mouth 2 00 times daily. Vital Signs Vital Name Observation Time Observation Value Comments Source Systolic blood pressure 2019-06-03 08:26:00 138 mm[Hg] [facility] Diastolic blood pressure 2019-06-03 08:26:00 85 mm[Hg] [facility] Heart rate 2019-06-03 08:26:00 77 /min [facility] Body temperature 2019-06-03 08:26:00 36.94 Alayna Emily is [facility] Respiratory rate 2019-06-03 08:26:00 18 /min [facility] Body height 2019-06-03 08:26:00 162.6 cm [facility] Body weight 2019-06-03 08:26:00 69.854 kg [facility] BMI 2019-06-03 08:26:00 26.43 kg/m2 [facility] Oxygen saturation in 2019-05-18 20:31:00 97 /min [facility] Arterial blood by Pulse oximetry Procedures Procedure Date / Time Performed Performing Clinician Sourc e ECHG EKG PROC 12 LEAD EKG; 2019-05-18 20:37:08 Alejandra Rodriguez [facility] TRACING ONLY CT ABDOMEN AND PELVIS 2019-05-17 15:49:33 Jordan Bee [facility] CONTRAST POCT URINE DIPSTICK - 2019-05-17 15:20:00 Jordan Bee [facility] VBG POC 2019-05-17 15:20:00 Barbara Mills [facility] URINALYSIS 2019-05-17 15:07:00 Jordan Bee [facility] URINALYSIS 2019-05-17 15:07:00 Jordan Bee [facility] URINE CULTURE 2019-05-17 15:07:00 Jordan Bee [facility] h LACTIC ACID 2019-05-17 14:58:00 Jordan Bee [facility] VBG POC 2019-05-17 14:53:00 Unknown, [facility] CREATININE POC 2019-05-17 14:51:00 Unknown, Provider [facility] BMP POC 2019-05-17 14:51:00 Unknown, Provider David [facility] TROPONIN I POC 2019-05-17 14:50:00 Unknown, Provider David [facility] BEDSIDE ULTRASOUND 2019-05-17 14:49:13 Jordan Bee alth CBC/DIFF 2019-05-17 14:22:00 Cristal, Jordan Hernandez [facility] LIVER PROFILE 2019-05-17 14:22:00 Cristal, Jordan Hernandez [facility] CBC 2019-05-17 14:22:00 Heft, Jordan Hernandez [facility] h LIPASE 2019-05-17 14:22:00 Barbara Mills [facility] ECHG EKG PROC 12 LEAD EKG; 2019-05-17 13:59:10 Doris Mcgill [facility] TRACING ONLY XRAY CHEST 2 VIEWS 2019-01-12 22:25:40 Savannah Hyatt [facility] 12 LEAD EKG 2019-01-12 20:37:29 Sang Mancilla [facility] Plan of Care Planned Activity Planned Date Details Comments Source Future Scheduled Test 2018 00:00:00 Screening for [facility] malignant neoplasm of colon (procedure) [code = 027079100] Future Scheduled Test 2008 00:00:00 Breast Cancer Scrn [facility] (Yearly) [code = Breast Cancer Scrn (Yearly)] Future Scheduled Test 1989 00:00:00 Screening for [facility] malignant neoplasm of cervix (procedure) [code = 897715823] Encounters Start End Encounter Admission Attending Care Care Encounter Source Date/Time Date/Time Type Type Clinicians Facility Department ID 2019-08-28 2019-08-28 Outpatient [facility] [id number] Hernandez 00:00:00 00:00:00 Health 2019-08-28 2019-08-28 Outpatient [facility] [id number] Hernandez 00:00:00 00:00:00 Health 2019-08-25 2019-08-25 Outpatient [facility] [id number] Hernandez 07:15:26 07:15:26 Health 2019-08-13 2019-08-13 Outpatient [facility] [id number] Hernandez 00:00:00 00:00:00 Health 2019-07-28 2019-07-28 Outpatient [facility] [id number] Hernandez 07:14:20 07:14:20 Health 2019-07-17 2019-07-17 Outpatient [facility] [id number] Hernandez 00:00:00 00:00:00 Health 2019-06-25 2019-06-25 Outpatient [facility] [id number] Hernandez 00:00:00 00:00:00 Health 2019-06-25 2019-06-25 Outpatient [facility] [id number] Hernandez 00:00:00 00:00:00 Health 2019-06-03 2019-06-03 Outpatient [facility] [id number] [facility] 08:29:28 08:29:28 Health 2019-05-18 2019-05-18 Emergency [facility] [id number] Hernandez 20:29:00 20:29:00 Health 2019-05-17 2019-05-17 Emergency [facility] [id number] [facility] 15:04:01 15:04:01 Health 2019-05-17 2019-05-17 Emergency [facility] [id number] Hernandez 14:03:46 14:03:46 Health 2019-01-13 2019-01-13 Emergency [facility] [id number] [place] 02:35:24 02:35:24 Health 2019-01-12 2019-01-12 Emergency [facility] [id number] Hernandez 22:16:47 22:16:47 Health 2018-08-30 2018-08-30 Emergency [facility] [id number] Hernandez 08:57:53 08:57:53 Health Results Test Description Test Time Test Results Result Source Comments Comments 12 LEAD EKG 2019-04-26 12 LEAD EKG FOR [facility] Emily is 7 Conrad Juarez ealth 09:14:21 [facility] Test Date: [id number] Name: ROCKY SCHULTZ Department: 6520Patient ID: [id number] Room: Gender: F Inspector Outside Production: [id number]: 1970 Requested By: ALEJANDRA RODRIGUEZ Order Number: [id number] Reading MD: Elio Grullon MeasurementsIntervals [place] Rate: 71 P: 70PR: 142 QRS: 62QRSD: 83 T: 73QT: 421 QTc: 457 Interpretive StatementsSINUS RHYTHMLEFT VENTRICULAR HYPERTROPHYNONSPECIFIC T WAVE ABNORMALITYPOOR R WAVE PROGRESSIONBASELINE ARTIFACTElectronically Signed On 05-21-2019 9:14:17 NEUROPSYCHOLOGY DIVISION CHIEF by Elio Lucas Urine Culture 2019-05-20 09:42:00 Test Item Value Reference Range Interpretation Comme nts Urine Culture (test code = 630-4) Urogenital ryan [place] [address] LE[address] [id number] 16:54:[address] FOR [facility] Test Date: 2065-43-42Zcp Name: ROCKY SCHULTZ Department: 6520Patient ID: [id number] Room: Gender: F Inspector Outside Production: [id number]/CPDOB: 1970 Requested By: DORIS Goldberg Number: [id number] Reading MD: Laura Stafford MeasurementsIntervals [place] Rate: 73 P: 68PR: 140 QRS: 59QRSD:81 T: 68QT: 409 QTc: 451 Interpretive StatementsSINUS RHYTHMVOLTAGE CRITERIA FOR LVHElectronically Signed On 05-17-2019 16:54:46 NEUROPSYCHOLOGY DIVISION CHIEF [facility] CONTRAST 2019-05-17 16:22:36IMPRESSION: 1. Mild circumferential bladder wall thickening may be due tounderdistention, however correlation with urinalysis recommended.2. Sigmoid diverticulosis without diverticulitis.3. Nonobstructing tiny calculus in the upper pole of left kidney. Dictated By: Alejandra Borrego MD, 05/17/2019 4: 06 PM I have reviewed the study and agree with the findings in this report. Signed By: Wesley Cabrera MD, 05/17/2019 4:22 PM Interface, Rad/Mammog In - 05/17/2019 4:27 PM CSTEXAM: CT ABDOMEN AND PELVIS WITH CONTRASTDATE: 05/17/2019 3:51 PM INDICATION: Abd pain, acute, generalized. Generalized abdominal pain COMPARISON: None.TECHNIQUE: Volumetric CT of the abdomen and pelvis is acquired followingthe intravenous administration of contrast. Axial, coronal and sagittalimages are provided. IV contrast: 100 mL Omnipaque 300Enteric contrast: None.DLP: 978 mGy-cm FINDINGS: Lower thorax: Clear.Liver: Normal.Biliary tree: No intra- or extrahepatic biliary ductal dilation.Gallbladder: Normal.Pancreas: Normal.Spleen: Normal.Adrenals: Normal.Kidneys and ureters: Punctate 2 to 3 mm nonobstructing stonenoted inthe left superior renal pelvis.Bladder: Mild circumferential bladder wall thickening noted.Reproductive organs: Uterus and adnexa are unremarkable. A Bartholin'scyst is noted in the cervix.Gastrointestinal tract:Stomach: Normal.Small bowel: Normal.Colon: Mucosal thickening in the ascending andtransverse colon islikely due to underdistention. Sigmoid diverticulosis withoutdiverticulitis.Appendix: Not seen. No inflammation.Peritoneum, mesentery and retroperitoneum: No free air, ascites orloculated fluid.Lymph nodes: Normal.Vasculature: Aorta and branches: Normal.IVC and veins: Normal.Portal vasculature: Normal.Bones: No acute abnormality. Degenerative changes of lumbar spinecentered at L5-S1 with endplate sclerosis, intervertebral disc spacenarrowing, and facet arthropathy. Bilateral neural foraminal narrowingis noted L5.Soft tissues: Tiny fat- containing umbilical hernia.IMPRESSIONIMPRESSION: 1. Mild circumferential bladder wall thickening may be due tounderdistention, however correlation with urinalysis recommended.2. Sigmoid diverticulosis without diverticulitis.3. Nonobstructing tiny calculus in the upper pole of left kidney. Dictated By: Alejandra Borrego MD, 05/17/2019 4:06 PMI have reviewed the study and agree with the findings in this report.Signed By: Wesley Cabrera MD, 05/17/2019 4:22 PM [facility] [id number] 15:48:00 Test Item Value Reference Range Interpretation Comments Lactic Acid (test code = 52595421) 1.5 mmol/L 0.5-2.2 Lab Interpretation (test code = Normal 75733-0) [facility] [id number] 15:48:00 Test Item Value Reference Range Interpretation Comments Color (test code = 74329181) Yellow Colorless, Straw, Yellow Clarity (test code = Clear Clear 59347837) Spec [place], Ur (test code = 1.008 1.001-1.035 42433809) pH, Ur (test code = 39694232) 7.0 5.0-8.0 Protein, Ur (test code = Negative Negative mg/dL 65766022) Glucose, Ur (test code = Negative Negative mg/dL 58704420) Ketone, Ur (test code = Negative Negative mg/dL 78528159) Bilirubin, Ur (test code = Negative Negative mg/dL 24496787) Nitrite, Ur (test code = Positive Negative A 86313235) Leukocyte (test code = 1+ Negative mg/dL A 93349771) Blood, Ur (test code = 2+ Negative mg/dL A 23107235) RBC (test code = 64316838) 5 0- 4 /HPF H WBC (test code = 53105201) 2 0- 5 /HPF Epithelial Cell (test code = 1 <=1 /HPF 22123915) Mucous (test code = 51477632) Present None seen /HPF A Bacteria (test code = Many None seen /HPF A 78998969) Urobilinogen, Ur (test code = <1.0 <1.0 EU/dL 38321589) Lab Interpretation (test code Abnormal = 82137-4) [facility] [id number] 15:27:00 Test Item Value Reference Range Interpretation Comments Lipase (test code = 00217057) 51 U/L 11-82 Lab Interpretation (test code = Normal 80472-6) [facility] HealthLiver [id number] 15:27:00 Test Item Value Reference Range Interpretation Comments Bilirubin, Total (test code = 0.6 mg/dL 0.2-1.2 2885-2) Alkaline Phosphatase (test code = 101 U/L 34-104 48309689) AST (test code = 43533513) 29 U/L 13-39 Direct Bilirubin (test code = 0.1 mg/dL 0-0.2 1968-7) ALT (test code = 82365210) 15 U/L 7-52 Albumin (test code = 08067-7) 4.6 g/dL 3.7-5.3 Lab Interpretation (test code = Normal 71984-6) [facility] VBG POC docked [id number] 15:24:00 Test Item Value Reference Range Interpretation Comments pH, Neo POC (test code = 7.42 7.33-7.43 59349517) pCO2,Neo POC (test code = 41.4 38- 50 mmHg 03355698) PO2, Venous POC (BKR) (test code 82 50- 75 mm Hg H = 15718494) Ionized Calcium POC (test code = 1.09 mmol/L 1.15-1.29 L 31141977) HCO3, Neo POC (test code = 27 mmol/L 22-26 H 19681911) TCO2 POC (test code = 39051194) 28 mmol/L 21-32 Base Excess Neo POC (test code = 2 mmol/L 27527375) Shivam's Test (test code = GURU 02171721) Sample Type (test code = IVEN 73459179) Site (test code = 24140810) RRADIA % Sat, Neo POC (test code = 96 % 14394673) Lab Interpretation (test code = Abnormal 96561-2) [facility] Urine - [id number] 15:20:00 Test Item Value Reference Range Interpretation Comments Control (test code = 7172) pass (test code = 7173) negative Lab Interpretation (test code = Normal 68129-4) [facility]/[id number] 15:13:00 Test Item Value Reference Range Interpretation Comments WBC (test code = 6690-2) 12.6 K/uL 4.5-11 H RBC (test code = 789-8) 5.48 4.20- 5.40 M/uL H Hemoglobin (test code = 718-7) 15.5 g/dL 12-16 Hematocrit (test code = 4544-3) 47.9 % 37-47 H MCV (test code = 787-2) 87.4 fL 82-92 MCH (test code = 785-6) 28.3 pg 27-32 MCHC (test code = 786-4) 32.4 g/dL 32-36 RDW (test code = 59576-4) 41.1 fL 36.4-46.3 Platelet (test code = 777-3) 290 K/uL 150-400 Mean Platelet Volume (test code = 10.5 fL 9.4-12.4 68747-4) Percent NRBC (test code = 67753086) 0.0 % Neutrophil (test code = 770-8) 68.9 % 34-70 Lymphs (test code = 736-9) 20.5 % 20-50 Monocytes (test code = 5905-5) 8.1 % 5-12 Eos (test code = 713-8) 1.4 % 0.7-5 Basos (test code = 706-2) 0.8 % 0.1-1.2 Immature Granulocytes (test code = 0.3 % 0-0.5 27119923) Neutrophils (Absolute) (test code = 8.65 K/uL 1.56-6.13 H 07322265) Lymphs (Absolute) (test code = 2.57 K/uL 1.18-3.74 16425875) Monocytes(Absolute) (test code = 1.02 K/uL 0.24-0.36 H 55901333) Eos (Absolute) (test code = 0.17 K/uL 0.04-0.36 86972468) Baso (Absolute) (test code = 0.10 K/uL 0.01-0.08 H 01839090) Immature Grans (Abs) (test code = 0.04 K/uL 0-0.03 H 44648693) Absolute NRBC (test code = 0.00 K/uL 58875460) Lab Interpretation (test code = Abnormal 38951-9) [facility] TROPONIN I POC docked [id number] 15:02:00 Test Item Value Reference Range Interpretation Comments Troponin POC (test code = 0.01 ng/mL 0-0.08 42998622) Lab Interpretation (test code = Normal 47007-3) [facility] BMP POC docked [id number] 15:01:00 Test Item Value Reference Range Interpretation Comments Sodium POC (test code = 61351450) 136 mmol/L 136-145 Potassium POC (test code = 5.2 mmol/L 3.5-5.1 H 52591478) Chloride POC (test code = 102 mmol/L 98-107 19724000) TCO2 POC (test code = 91575641) 28 mmol/L 21-32 Urea Nitrogen POC (test code = 12 mg/dL 7-18 17710582) Glucose POC (test code = 50414337) 109 mg/dL 74-106 H Hemoglobin POC (test code = 16.3 g/dL 12-16 H 21435330) Hematocrit POC (test code = 48.0 % 37-47 H 95634462) Lab Interpretation (test code = Abnormal 28092-4) [facility] CREATININE POC docked [id number] 14:57:00 Test Item Value Reference Range Interpretation Comments Creatinine POC (test code = 0.8 mg/dL 0.6-1.3 25202240) GFR, Estimated (test code = 86 >=90 mL/min/1.73 m2 L 77293071) Lab Interpretation (test code = Abnormal 87103-6) [facility] [id number] 14:49:13Jordan Bee ResidentMD 05/17/2019 8:34 PMBedside UltrasoundDate/Time: 05/17/2019 3:53 PMPerformed by: Jordan Bee ResidentMDAuthorized by: Barbara Mills MD Consent: Consent obtained: Verbal Consent given by: Patient Alternatives discussed: Delayed treatment, no treatment and alternative treatmentIndications: Indications: Abdominal painComments: Bedside Gallbladder US. Indication - abdominal pain. Axial and longitudinal view obtained. No stones or sludge visualized. Sono Rico's neg. No pericholecystic fluid. No gallbladder wall thickening. Performed and interpreted by co.[place] [address] LEAD [id number] 11:36:3912 LEAD [facility] Date: 0740-92-22Xdn Name: ROCKY SCHULTZ Department: 6520Patient ID: [id number] Room: Gender: Inspector Outside Production: DJOHNSONDOB: 1970 Requested By: SANG Rubio Number: [id number] Reading MD: Elio Grullon MeasurementsIntervals [place] Rate: 72 P: 58PR: 125 QRS: 65QRSD: 76 T: 67QT: 382 QTc: 418 Interpretive StatementsSINUS RHYTHMMINIMAL VOLTAGE CRITERIA FOR LVH, CONSIDER NORMAL VARIANTElectronically Signed On 01-16-2019 11:36:35 CDT by Elio OlmosInland Northwest Behavioral HealthAY CHEST 2 [id number] 22:39:50IMPRESSION: 1. No acute abnormality. This [facility] radiology report is a preliminary resident dictation untilfinalized by an attending. Changes to this preliminary report may occurin an additional preliminary or finalized version. I have reviewed the study and agree with the findings in this report. Signed By: Gamal Santos M.D., 01/12/2019 10:39 PM Interface, Rad/Mammog In - 01/12/2019 10:44 PM C DTEXAM: XR CHEST 2 VIEWSDATE: 01/12/2019 10:25 PM INDICATION: cough. Wheezing COMPARISON: Chest radiograph dated 07/05/2013TECHNIQUE: PA and lateral chest radiographsFINDINGS:Lines, tubes and hardware: None. Lungs and pleura: No pulmonary edema. The lungs are clear andwell-inflated. The costophrenicsulci are sharp, without pleuraleffusion. No pneumothorax is identified.Heart and mediastinum: The heart size is normal for technique. Themediastinal contours are normal. Bones and soft tissues: No acute abnormality.IMPRESSIONIMPRESSION: 1. No acute abnormality.This [facility] radiology report is a preliminary resident dictation untilfinalized by an attending. Changes to this preliminary report may occurin an additional preliminary or finalized version.I have reviewed the study and agree with the findings in this report.Signed By: Gamal Santos M.D., 01/12/2019 10:39 PM[facility]
--- NOTE | 2019-10-19 11:36 | RAD REPORT ---
EXAM DESCRIPTION: RAD - Chest Single View - 10/19/2019 10:27 am CLINICAL HISTORY: CHEST PAIN COMPARISON: Portable October 12 TECHNIQUE: AP portable chest image was obtained 10/19/2019 10:27 am . FINDINGS: Lungs are clear. Heart and vasculature are normal. No measurable pleural effusion and no p neumothorax. No acute bony abnormality seen. No acute aortic findings suspected. IMPRESSION: No acute cardiopulmonary process. No significant change from comparison.
--- NOTE | 2019-10-19 11:38 | EDPHYS ---
Physician Documentation [facility] Name: Hellen Negron Age: 49 yrs Sex: Female : 1970 Arrival Date: 10/19/2019 Time: 09:26 Bed 16 Private MD: ED Physician Suleiman Ley HPI: 10/18 09:44 This 49 yrs old Female presents to ER via EMS with complaints of Chest Pain > rn 28 y/o. 09:44 The patient or guardian reports chest pain that is located primarily in the substernal rn area. Onset: 1 hour(s) ago. The pain does not radiate. The chest pain is described as a heaviness. Duration: The patient or guardian reports a single episode, that lasted 5 minute(s). Modifying factors: The symptoms are alleviated by nothing. the symptoms are aggravated by nothing. Severity of pain: At its worst the pain was mild in the emergency department the pain has resolved. The patient has not experienced similar symptoms in the past. Reports at rehab facility, experienced chest pain, heaviness, center of chest, single episode that lasted 5 min and resolved on its own. + HTN and noticed high blood pressure for last few weeks. No current complaints, + back to baseline. Reports in rehab for cocaine and ETOH, clean for 17 days. No trauma/cough/sob. . Historical: - Allergies: 11:50 No Known Allergies; jr10 - Home Meds: 11:50 Buspirone Oral [Active]; Dicyclomine Oral [Active]; Risperdal Oral [Active]; Trazodone jr10 Oral [Active]; - PMHx: 11:50 Hypertension; SUBSTANCE ABUSE; jr10 - Immunization history:: Adult Immunizations up to date. - Family history:: not pertinent. - Social history:: Smoking status: Patient reports the use of cigarette tobacco products. - Hospitalizations: : No recent hospitalization is reported. ROS: 09:44 Constitutional: Negative for fever, chills, and weight loss, Eyes: Negative for injury, rn pain, redness, and discharge, Neck: Negative for injury, pain, and swelling, Cardiovascular: Negative for palpitations, and edema, Respiratory: Negative for shortness of breath, cough, wheezing, and pleuritic chest pain, Abdomen/GI: Negative for abdominal pain, nausea, vomiting, diarrhea, and constipation, MS/Extremity: Negative for injury and deformity, Skin: Negative for injury, rash, and discoloration, Neuro: Negative for headache, weakness, numbness, tingling, and seizure. Exam: 09:44 Constitutional: This is a well developed, well nourished patient who is awake, alert, rn and in no acute distress. Head/Face: Normocephalic, atraumatic. Cardiovascular: Regular rate and rhythm. No pulse deficits. Respiratory: No increased work of breathing, no retractions or nasal flaring. Abdomen/GI: soft, non-tender Skin: Warm, dry with normal turgor. Normal color with no rashes, no lesions, and no evidence of cellulitis. MS/ Extremity: Pulses equal, no cyanosis. Neurovascular intact. Full, normal range of motion. Equal circumference. Neuro: Awake and alert, GCS 15, oriented to person, place, time, and situation. Cranial nerves II-XII grossly intact. Motor strength 5/5 in all extremities. Sensory grossly intact. Cerebellar exam normal. Normal gait. 09:47 ECG was reviewed by the Attending Physician. rn Vital Signs: 09:48 BP 164 / 96; Pulse 67; Resp 20; Temp 98.5(O); Pulse Ox 99% ; jr10 10:58 BP 163 / 86; Pulse 57; Resp 17; Pulse Ox 99% on R/A; Pain 0/10; jr10 11:30 BP 152 / 101; Pulse 58; Resp 20; Temp 98.1(O); Pulse Ox 100% on R/A; jr10 MDM: 09:26 Patient medically screened. rn 11:36 Differential diagnosis: acute pericarditis, anxiety, coronary artery disease chest wall rn pain, costochondritis, esophagitis, gastritis, pleurisy, pneumothorax. Data reviewed: vital signs, nurses notes, lab test result(s), EKG, radiologic studies, and as a result, I will discharge patient. Test interpretation: by ED physician or midlevel provider: ECG, plain radiologic studies, CXR neg for acute finding. Counseling: I had a detailed discussion with the patient and/or guardian regarding: the historical points, exam findings, and any diagnostic results supporting the discharge/admit diagnosis, lab results, radiology results, the need for outpatient follow up, to return to the emergency department if symptoms worsen or persist or if there are any questions or concerns that arise at home. Special discussion: I discussed with the patient/guardian in detail that at this point there is no indication for admission to the hospital. It is understood, however, that if the symptoms persist or worsen the patient needs to return immediately for re-evaluation. Based on the history and exam findings, there is no indication for further emergent testing or inpatient evaluation. I discussed with the patient/guardian the need to see the metal numerical control programmer for further evaluation of the symptoms. I discussed with the patient/guardian the need to see the primary care provider for further evaluation of the symptoms. 10/18 09: Order name: Basic Metabolic Panel; Complete Time: 10:10/18 09:27 Order name: CBC with Diff; Complete Time: :10/18 09:27 Order name: NT PRO-BNP; Complete Time: :10/18 09:27 Order name: Troponin (emerg Dept Use Only); Complete Time: :10/18 09:27 Order name: XRAY Chest (1 view); Complete Time: 11:36 10/18 09:27 Order name: EKG; Complete Time: 09:28 10/18 09:27 Order name: Cardiac monitoring; Complete Time: :38 10/18 09:27 Order name: EKG - Nurse/Tech; Complete Time: :10/18 09:27 Order name: IV Saline Lock; Complete Time: :38 10/18 09:27 Order name: Labs collected and sent; Complete Time: :10/18 09:27 Order name: O2 Per Protocol; Complete Time: :10/18 09:27 Order name: O2 Sat Monitoring; Complete Time: :38 rn EC:47 Rate is 61 beats/min. Rhythm is regular. QRS [place] is Normal. [place] interval is normal. QRS rn interval is normal. QT interval is normal. No Q waves. T waves are Normal. No ST changes noted. Clinical impression: Normal ECG. Interpreted by me. Reviewed by me. Administered Medications: No medications were administered Disposition: 10/19/19 11:37 Discharged to Home. Impression: Chest pain, unspecified. - Condition is Stable. - Medication Reconciliation Form, Thank You Letter, Antibiotic Education, Prescription Opioid Use form. - Follow up: Travis Clancy MD; When: As needed; Reason: Recheck today's complaints, Re-evaluation by your physician. - Problem is new. - Symptoms are resolved. Signatures: Dispatcher [employer] EDSuleiman Cesar MD MD rn Rivera, Jessica, RN RN jr10 Corrections: (The following items were deleted from the chart) 11:55 11:37 10/19/2019 11:37 Discharged to Home. Impression: Chest pain, unspecified. jr10 Condition is Stable. Forms are Medication Reconciliation Form, Thank You Letter, Antibiotic Education, Prescription Opioid Use. Follow up: Travis Clancy; When: As needed; Reason: Recheck today's complaints, Re-evaluation by your physician. Problem is new. Symptoms are resolved. rn
--- NOTE | 2019-10-19 11:38 | ER ---
Nurse's Notes [facility] Name: Hellen Negron Age: 49 yrs Sex: Female : 1970 Arrival Date: 10/19/2019 Time: 09:26 Bed 16 Private MD: Diagnosis: Chest pain, unspecified Presentation: 10/18 09:28 Chief complaint: Patient states: Pt presents from EMS from rehab with c/o anterior jr10 chest wall pain lasting approx 5 mins with dyspnea. Pt reports pain has since resolved. Reports family hx of cardiac problems and reports personal hx of cocaine and etoh abuse. Has been in rehab for 17 days. Coronavirus screen: Patient denies a cough. Patient reports shortness of breath or difficulty breathing. Patient denies measured and/or subjective temperature greater than 100.4F prior to today's visit. Patient denies travel on a cruise ship or to a country the [facility] currently lists as an affected area. Patient denies contact with known and/or suspected case of COVID-19. Ebola Screen: No symptoms or risks identified at this time. Initial Sepsis Screen: Does the patient meet any 2 criteria? No. Patient's initial sepsis screen is negative. Does the patient have a suspected source of infection? No. Patient's initial sepsis screen is negative. Risk Assessment: Do you want to hurt yourself or someone else?. Risk Assessment: Do you want to hurt yourself or someone else? Patient reports no desire to harm self or others. Onset of symptoms. 09:28 Method Of Arrival: EMS jr10 09:28 Acuity: MADDIE 3 jr10 Historical: - Allergies: 11:50 No Known Allergies; jr10 - Home Meds: 11:50 Buspirone Oral [Active]; Dicyclomine Oral [Active]; Risperdal Oral [Active]; Trazodone jr10 Oral [Active]; - PMHx: 11:50 Hypertension; SUBSTANCE ABUSE; jr10 - Immunization history:: Adult Immunizations up to date. - Family history:: not pertinent. - Social history:: Smoking status: Patient reports the use of cigarette tobacco products. - Hospitalizations: : No recent hospitalization is reported. Screenin:49 Abuse screen: Denies threats or abuse. Denies injuries from another. Nutritional jr10 screening: No deficits noted. Tuberculosis screening: No symptoms or risk factors identified. Fall Risk No fall in past 12 months (0 pts). No secondary diagnosis (0 pts). IV access (20 points). Ambulatory Aid- None/Bed Rest/Nurse Assist (0 pts). Gait- Normal/Bed Rest/Wheelchair (0 pts) Mental Status- Oriented to own ability (0 pts). Assessment: 09:44 General: Appears in no apparent distress. Behavior is calm, cooperative, appropriate jr10 for age. Pain: Denies pain. Neuro: No deficits noted. Cardiovascular: Reports chest pain, reports one episode of chest pain at approx 0800 this morning, reports pain that felt like a pressure and heavy to anterior chest wall with dyspnea. Pt reports pain last approx 5 mins and subsided on it's own. Pt denies any pain at present. Reports that she is currently in rehab for cocaine and alcohol abuse. Reports that she has been in rehab x17 days. Denies any cardiac hx Denies chest pain, diaphoresis, fatigue, lightheadedness, nausea, palpitations, shortness of breath, syncope, vomiting, Capillary refill < 3 seconds Pulses are all present. Edema is absent. Rhythm is regular. Respiratory: No deficits noted. Airway is patent Respiratory effort is even, unlabored, Respiratory pattern is regular, symmetrical, Breath sounds are clear bilaterally. Denies cough, labored breathing, pain with respiration, pain with cough, pain with movement. GI: No deficits noted. : No deficits noted. Derm: No deficits noted. Musculoskeletal: No deficits noted. Vital Signs: 09:48 BP 164 / 96; Pulse 67; Resp 20; Temp 98.5(O); Pulse Ox 99% ; jr10 10:58 BP 163 / 86; Pulse 57; Resp 17; Pulse Ox 99% on R/A; Pain 0/10; jr10 11:30 BP 152 / 101; Pulse 58; Resp 20; Temp 98.1(O); Pulse Ox 100% on R/A; jr10 ED Course: 09:26 Patient arrived in ED. rn 09:26 Suleiman Ley MD is Attending Physician. rn 09:28 Barbara Benz, SHANTANU is Primary Nurse. jr10 09:30 EKG done, by ED staff, reviewed by Suleiman Ley MD. 3 09:31 Triage completed. jr10 09:31 Arm band placed on left wrist. jr10 09:49 Patient has correct armband on for positive identification. Placed in gown. Bed in low jr10 position. Call light in reach. Side rails up X 1. manager monitoring on. Pulse ox on. NIBP on. 09:49 No provider procedures requiring assistance completed. Inserted saline lock: 20 gauge jr10 in right forearm, using aseptic technique. IV is patent, is intact, Flushed. 10:27 XRAY Chest (1 view) In Process Unspecified. EDMS 11:37 Travis Clancy MD is Referral Physician. rn 11:55 IV discontinued, intact, No redness/swelling at site. Pressure dressing applied. jr10 Administered Medications: No medications were administered Outcome: 11:37 Discharge ordered by . rn 11:54 Discharged to home ambulatory. jr10 11:54 Condition: good 11:54 Discharge instructions given to patient, Instructed on discharge instructions, follow up and referral plans. Demonstrated understanding of instructions, follow-up care. 11:55 Patient left the ED. jr10 Signatures: Dispatcher [employer] EDWV Suleiman Ley MD MD rn Herrera, [facility] Barbara Benz RN RN jr10
[2019-10-19 12:03] VITALS: BP 152/101; TEMP 98.1; O2SAT 100
== END 2019-10-19 11:55 | disposition home or self-care (01) ==
LOC: ER 09:25
DX: R07.9 Chest pain, unspecified (principal); Z72.0 Tobacco use
CPT/HCPCS: 36415; 71045; 80048; 83880; 84484; 85025; 93005; 99284

== ENCOUNTER 2019-10-30 13:52 | Emergency (ER) | payer SELFPAY ==
--- OUTSIDE RECORDS SUMMARY | 2019-10-30 13:55 | XMS REPORT | Clinical Summary ---
:1970 Author Organization [facility] Dist[facility] ict Address [address] [place] [id number] Care Team Providers Name Role Phone Kash Irizarry [facility] [employer] Signal Technician Emma Pierce [facility] [employer] Signal Technician Unavailable Charbel Lozano RN Clinical Nurse Fisher Mussel Unavailable Dylan Lee [facility] [employer] Signal Technician Unavailable Ruthie Poole [facility] [employer] Signal Technician Unavailable SHANTANU Porras Clinical Nurse Fisher Mussel Unavailable Allergies No Known Allergies Medications Medication [...] in, epigastric (Primary Dx); Encounter Michelle D, 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; Chronic right-s ided low back pain with right-sided sciatica 07/28/2019 Telephonic Family Practice Jeison Be X, NO SHOW E NCOUNTER Encounter (Primary Dx) 07/01/2019 Orders Only Family Practice Jeison Be, Bipolar 2 disorder 06/03/2019 Office Visit Family Practice Jeison Be, Abdominal pain, epigastric (Primary Dx); Abscess of chin ; Right wrist virgen n; Bipolar 2 disor zi; Screening exami [facility] [place] for infectious disease; Screening for c olon [...] congestion (Primary Dx); MD Dario Wheezing after 10/29/2018 Family History Medical History Relation Name Comments [...] beer 1.0 1 beer every 3 m [facility] Alcohol Habits Answer Date Recorded How often [...] CDT Oxygen Saturation 97% 05/18/2019 8:31 PM AUDIT CONTROL CLERK Inhaled Oxygen Concentration - - Weight 69.9 [...] Results for this LEAD EKG; TRACING PM AUDIT CONTROL CLERK procedure are in ONLY the results section. CT ABDOMEN AND STAT 05/17/2019 3:49 Generalized Results f or this PELVIS CONTRAST PM AUDIT CONTROL CLERK abdominal pain procedure are in the results section. VBG POC Routine 05/17/2019 3:20 Results for this PM AUDIT CONTROL CLERK procedure are i n the results section. POCT URINE DIPSTICK STAT 05/17/2019 3:20 Resu lts for this - PM AUDIT CONTROL CLERK procedure are i n the results section. URINE CULTURE STAT 05/17/2019 3:07 Results fo r this PM AUDIT CONTROL CLERK procedure are i n the results section. URINALYSIS STAT 05/17/2019 3:07 Results for this PM AUDIT CONTROL CLERK procedure are i n the results section. URINALYSIS STAT 05/17/2019 3:07 Results for this PM AUDIT CONTROL CLERK procedure are i n the results section. LACTIC ACID STAT 05/17/2019 2:58 Results for this PM AUDIT CONTROL CLERK procedure are i n the results section. VBG POC Routine 05/17/2019 2:53 Results for this PM AUDIT CONTROL CLERK procedure are i n the results section. BMP POC Routine 05/17/2019 2:51 Results for this PM AUDIT CONTROL CLERK procedure are i n the results section. CREATININE POC Routine 05/17/2019 2:51 Results f or this PM AUDIT CONTROL CLERK procedure are i n the results section. TROPONIN I POC Routine 05/17/2019 2:50 Results f or this PM AUDIT CONTROL CLERK procedure are i n the results section. BEDSIDE ULTRASOUND Routine 05/17/2019 2:49 Generalized Resul ts for this PM AUDIT CONTROL CLERK abdominal pain procedure are in the results section. LIPASE Add-on 05/17/2019 2:22 Results for this PM AUDIT CONTROL CLERK procedure are i n the results section. CBC STAT 05/17/2019 2:22 Results for this PM AUDIT CONTROL CLERK procedure are i n the results section. LIVER PROFILE STAT 05/17/2019 2:22 Results fo r this PM AUDIT CONTROL CLERK procedure are i n the results section. CBC/DIFF STAT 05/17/2019 2:22 Results for this PM AUDIT CONTROL CLERK procedure are i n the results section. ECHG EKG PROC 12 Routine 05/17/2019 1:59 Results for this LEAD EKG; TRACING PM AUDIT CONTROL CLERK procedure are in ONLY the results section. XRAY CHEST 2 VIEWS STAT 01/12/2019 10:25 Wheezing Resul ts for this PM CDT procedure are i n the results section. 12 LEAD EKG Routine 01/12/2019 8:37 Results for this PM CDT procedure are i n the results section. 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 : 1971-04-1 4 Requested By: ALEJANDRA RODRIGUEZ Order Number: [id number] Reading MD: Elio Grullon Measu rements Intervals [place] Rate: 71 P: 70 IA: 142 QRS: 62 QRSD: 83 T: 73 QT: 421 QTc: 457 Interpretive S tatements SINUS RHYTHM LEFT VENTRICULAR HYPERTROPHY NONSPECIFIC T WAVE ABNORMALITY POOR R WAVE PROGRESSION BASELINE ARTIFACT Electronically Signed On 05-21-2019 9:14:17 AUDIT CONTROL CLERK by Elio Grullon Specimen Performing Organization Address City/State/Zipcode Phone Number [facility] CT ABDOMEN AND PELVIS CONTRAST (05/17/2019 3:49 PM AUDIT CONTROL CLERK) Specimen Impressions Performed At IMPRESSION: SMS 1. [...] CT ABDOMEN AND PELVIS WITH CONTRAS T [facility] DATE: 05/17/2019 3:51 PM INDICATION: Abd pain, [...] Rad/Mammog In - 05/17/2019 4 :27 PM AUDIT CONTROL CLERK EXAM: CT ABDOMEN AND PELVIS WITH CONTRAST [...] VBG POC docked device (05/17/2019 3:20 PM AUDIT CONTROL CLERK)Only the most recent of2 resultswithin the time [...] 2 mmol/L [facility] Shivam's Test GURU [facility] Sample Type IVEN [facility] Site RRADIA [facility] % Sat, Neo POC 96 % [facility] Specimen Blood, venous Performing Organization Address [facility] Phone Number [facility] [address] [place] [address] POCT Urine - (05/17/2019 3:20 PM AUDIT CONTROL CLERK) Pathologist Sig [facility] Control pass negative Urinalysis (05/17/2019 3:07 PM AUDIT CONTROL CLERK) Pathologist Sig nature Color Yellow Colorless, Straw, [facility] Yellow Clarity Clear Clear [facility] Spec [place], Ur 1.008 1.001 - 1.035 [facility] [...] [facility] Specimen Urine Performing Organization Address [facility] Phone Number [facility] [address] [place] [address] Urine Culture (05/17/2019 3:07 PM AUDIT CONTROL CLERK) Pathologist Sig [facility] Urine Culture Urogenital ryan [facility] Specimen Urine - Clean Catch [place] Stream Performing Organization Address [facility] Phone Number [facility] [address] [place], [place] [phone] Lactic Acid (05/17/2019 2:58 PM AUDIT CONTROL CLERK) Pathologist Sig [facility] Lactic Acid 1.5 0.5 - 2.2 mmol/L [facility] Specimen Blood Performing Organization Address [facility] Phone Number [facility] [address] [place] [address] POCT CREATININE POC docked device (05/17/2019 2:51 PM AUDIT CONTROL CLERK) Pathologist [facility] Creatinine POC 0.8 0.6 - 1.3 mg/dL [facility] GFR, Estimated 86 (L) >=90 mL/min/1.73 m2 [facility] Specimen Blood, venous Performing Organization Address [facility] Phone Number [facility] [address] [place] [address] POCT BMP POC docked device (05/17/2019 2:51 PM AUDIT CONTROL CLERK) Pathologist Sig [facility] Sodium POC 136 136 - 145 mmol/L [facility] Potassium POC 5.2 (H) 3.5 - 5.1 mmol/L [facility] Chloride POC 102 98 - 107 mmol/L [facility] TCO2 POC 28 21 - 32 mmol/L [facility] Urea Nitrogen POC 12 7 - 18 mg/dL [facility] Glucose POC 109 (H) 74 - 106 mg/dL [facility] Hemoglobin POC 16.3 (H) 12 - 16 g/dL [facility] Hematocrit POC 48.0 (H) 37.0 - 47.0 % [facility] Specimen Blood, venous Performing Organization Address [facility] Phone Number [facility] [address] [place] [address] POCT TROPONIN I POC docked device (05/17/2019 2:50 PM AUDIT CONTROL CLERK) Pathologist Sig [facility] Troponin POC 0.01 0.00 - 0.08 ng/mL [facility] Specimen Blood, venous Performing Organization Address [facility] Phone Number [facility] [address] [place] [phone] Bedside Ultrasound (05/17/2019 2:49 PM AUDIT CONTROL CLERK) Narrative Performed At Jordan Bee, MD 020 [...] interpreted by me. CBC/Diff (05/17/2019 2:22 PM AUDIT CONTROL CLERK) Pathologist Sig nature WBC 12.6 (H) 4.5 [...] [facility] Specimen Blood Performing Organization Address [facility] Phone Number [facility] [address] [place], [place] [phone] Liver Profile (05/17/2019 2:22 PM AUDIT CONTROL CLERK) Pathologist Sig nature Total Protein 7.6 6.0 [...] [facility] Specimen Blood Performing Organization Address [facility] Phone Number [facility] [address] [place] [address] Lipase (05/17/2019 2:22 PM AUDIT CONTROL CLERK) Pathologist Sig nature Lipase 51 11 - 82 U/L [facility] Specimen Blood Performing Organization Address [facility] Phone Number [facility] [address] [place] [address] [phone] 12 LEAD EKG (05/17/2019 1:59 PM AUDIT CONTROL CLERK) 12 LEAD EKG FOR [facility] SMS Test Date: 2019-05-17 Pat Name: ROCKY NEGRON Depart ent: [id number] Room: Gender: F Power Transmission Engineer: [id number]/CP : 1970 Requested By: DORIS Saleem Order Number: [id number] Reading MD: Laura Stafford Measu rements Intervals [place] Rate: 73 P: 68 IA: 140 QRS: 59 QRSD: 81 T: 68 QT: 409 QTc: 451 Interpretive S tatements SINUS RHYTHM VOLTAGE CRITERIA FOR LVH Electronically Signed On 05-17-2019 16:54:46 AUDIT CONTROL CLERK by Xiomy Stafford Specimen Performing Organization Address City/State/Zipcode Phone Number SMS XRAY CHEST 2 VIEWS (01/12/2019 10:25 PM CDT) Specimen Impressions Performed At IMPRESSION: SMS 1. No acute abnormality. This [facility] radiology report is a prelimin amor resident [...] IMPRESSION IMPRESSION: 1. No acute abnormality. This [facility] radiology report is a prelimin amor resident [...] 12 LEAD EKG FOR [facility] Conrad Oropeza [facility] SMS Test Date: 2019-01-12 Pat Name: ROCKY NEGRON Departm ent: [id number] Room: Gender: Power Transmission Engineer: [id number] : 1971-04-1 4 Requested By: SANG Corbin Order Number: [id number] Reading MD: Elio Grullon Measu rements Intervals [place] Rate: 72 P: 58 IA: 125 QRS: 65 QRSD: 76 T: 67 QT: 382 QTc: 418 Interpretive S tatements SINUS RHYTHM MINIMAL VOLTAGE CRITERIA FOR LVH, CONSIDER NORMAL VARI ANT Electronically Signed On 01-16-2019 11:36:35 CDT by Harika Grullon Specimen Performing Organization Address City/State/Zipcode Phone Number [facility] after 10/29/2018 Insurance Payer Benefit Plan / Subscriber ID Effective Phone Address T ype Group Dates [facility] FAMILY xxxxxx 2019- [phone] [place] [address] [facility] PLAN FINANCIAL xxxxxx 2019- [phone] [employer] [address] [place] [address] Rocky Negron Poli Self 1970 [address] [place] (Home) [place], [place] [phone] [id number] (Work)
--- OUTSIDE RECORDS SUMMARY | 2019-10-30 13:56 | XMS REPORT | Continuity of Care Document ---
:1970 Author Organization [facility] t Address [address] [place] [address] Care Team Providers Name Role Phone Sia Bettencourt NP Attending Clinician [place] STEELE, X Attending Clinician Charly STEELE Attending Clinician Waqas STEELE, S Attending Clinician Gene STEELE, L Attending Clinician Unavailable Chencho STEELE, J Attending Clinician Payers Payer Name Policy Type Policy Effective Date Expiration Date Sour ce Number [place] [facility] x[facility]x 2019 2020 Hernandez PLANNING 00:00:00 23:59:59 Health [facility] [facility] [employer] INDIGENTxxxxxx-[id number] [phone] [address] [employer] x[employer]x 2019 2020 Hernandez ASSISTANCE 00:00:00 23:59:59 Health [phone] [place] [address] Problems Condition Condition Condition Status Onset Resolution [...] bone bone 00 Hand Hand Disease Active [place] fracture fracture 2-16 Health 00:00: 00 Sciatica Sciatica Disease Active Harri [facility] 2-26 Health 00:00: 00 Bipolar 2 Bipolar 2 Disease Active [facility] disorder disorder Health Sleep Sleep Disease Active [place] disorder disorder Health Cocaine Cocaine Disease Active [place] Abuse, h/o Abuse, h/o He alth Tobacco Tobacco Disease Active [place] abuse abuse Health Allergies, Adverse Reactions, Alerts This patient has no known allergies or adverse reactions. Family History Family Member Diagnosis Comments Start Date Stop Date Source Natural father [facility] Hea lt Natural father Hypertension David Juarez eahalley Maternal grandfather [facility] is Health Maternal grandmother [facility] Maternal grandmother Hypertension [facility] [employer] Natural mother Hypertension David wright Paternal grandfather [facility] Emily is Health Paternal grandmother Heart Emily is Health Social History Social Habit Start Date Stop Date Quantity Comments Source History of tobacco Cigarette Smoker [facility] use History [facility] Alcohol Binge Sex Assigned At [facility] alth Cigarettes smoked 2019-08-25 2019-08-25 [facility] current (pack per 00:00:00 00:00:00 day) - Reported Cigarette 2019-08-25 2019-08-25 [facility] pack-years 00:00:00 00:00:00 Alcohol intake 2019-08-25 2019-08-25 Current drinker [facility] 00:00:00 00:00:00 of alcohol (finding) History [facility] 2019-06-03 2019-06-03 2 [facility] Alcohol Frequency 00:00:00 00:00:00 History [facility] 2019-06-03 2019-06-03 1 [facility] Alcohol Std Drinks 00:00:00 00:00:00 Alcohol Comment 2019-06-03 2019-06-03 1 beer every 3 [facility] 00:00:00 00:00:00 months Tobacco Comment 2012-01-14 2012-01-14 [facility] with smoking cessation progrm thru [facility] Smoking Status Start Date Stop Date Source Current every day smoker 2019-08-25 00:00:[address] [facility] Medications Ordered Filled Start Stop Current Ordering Indication Dosage Frequency Signature Comments Components Source Medication Medication Date Date Medication? Clinician (SIG) Name Name dexlansopra Yes Abdominal 60mg QD Take 1 Hernandez zole 08-24 pain, capsule by [facility] (DEXILANT) 00:00: epigastric mouth 60 mg 00 daily. delayed release capsule metoclopram Yes Nausea 10mg Take 1 Dean rris raven 602 tablet by [facility] (REGLAN) 10 00:00: mouth mg tablet 00 every 8 hours as needed for Other (nausea). naproxen 2019- No Right wrist 500mg Take 1 [place] (NAPROSYN) 06-02 pain tablet by [facility] 500 mg 00:00: 23:59 mouth 2 tablet 00 :00 times daily (with meals) for 15 days. sulfamethox 2019- No Abscess of 1{tbl} Q.5D Take 1 [place] azole-trime 06-02 chin [facility] 23:59 mouth 2 (BACTRIM 00 :00 times DS) 800-160 daily for mg per 10 days. tablet dicyclomine Yes Generalized 10mg Take 1 [place] (BENTYL) 10 05-17 abdominal capsule by [facility] mg capsule 00:00: pain mouth 4 00 times daily (before meals and nightly). ondansetron 2019- No Generalized 4mg Take 1 [place] (ZOFRAN) 4 05-17 abdominal tablet by [facility] mg tablet 00:00: 00:00 pain mouth 00 :00 every 8 hours as needed for up to 10 doses for Nausea. nitrofurant 2019- No Acute 100mg Q.5D Take 1 H arris oin 05-17 cystitis capsule by [facility] mono/m-jewell 00:00: 23:59 without mouth 2 tals 00 :00 hematuria times (MACROBID) daily for 100 mg 7 days. capsule benzonatate 2018-03- No URI with 100mg Take 1 [place] (TESSALON 01-23 cough and capsule by [facility] PERL) 100 00:00: 23:59 congestion mouth 3 mg capsule 00 :00 times daily as needed for up to 10 days for Cough. lisinopril Yes HTN 10mg QD Take 1 [facility] (PRINIVIL) 10-19 (hypertensi tablet by [facility] 10 mg 00:00: on) mouth tablet 00 daily. gabapentin 2020- No Lower back 300mg Q.5D Take 1 [place] (NEURONTIN) 10-19 pain capsule by [facility] 300 mg 00:00: 00:00 mouth 2 capsule 00 :00 times daily. busPIRone Yes Bipolar 2 15mg Take 1 [facility] (BUSPAR) 15 6-25 disorder tablet by [facility] mg tablet 00:00: mouth 3 00 times daily. traZODone Yes Bipolar 2 150mg Take 1.5 [place] (DESYREL) 6-25 disorder tablets by [facility] 100 mg 00:00: mouth at tablet 00 bedtime nightly. risperiDONE Yes Bipolar 2 1mg Q.5D Take 1 [place] (RISPERDAL) 6-25 disorder tablet by [facility] 1 mg tablet 00:00: mouth 2 00 times daily. Vital Signs Vital Name Observation Time Observation Value Comments Source Systolic blood pressure 2019-06-03 08:26:00 138 mm[Hg] [facility] Diastolic blood pressure 2019-06-03 08:26:00 85 mm[Hg] [facility] Heart rate 2019-06-03 08:26:00 77 /min formerly [facility] Body temperature 2019-06-03 08:26:00 36.94 Alayna Emily is [facility] Respiratory rate 2019-06-03 08:26:00 18 /min [facility] Body height 2019-06-03 08:26:00 162.6 cm formerly [facility] Body weight 2019-06-03 08:26:00 69.854 kg formerly [facility] BMI 2019-06-03 08:26:00 26.43 kg/m2 formerly [facility] Oxygen saturation in 2019-05-18 20:31:00 97 /min [facility] Arterial blood by Pulse oximetry Procedures Procedure Date / Time Performed Performing Clinician Sourc e ECH[facility] EKG PROC 12 LEAD EKG; 2019-05-18 20:37:08 Alejandra Rodriguez [facility] TRACING ONLY CT ABDOMEN AND PELVIS 2019-05-17 15:49:33 Jordan Bee [facility] CONTRAST POCT URINE DIPSTICK - 2019-05-17 15:20:00 Jordan Bee [facility] VBG POC 2019-05-17 15:20:00 Barbara Mills [facility] URINALYSIS 2019-05-17 15:07:00 Jordan Bee [facility] URINALYSIS 2019-05-17 15:07:00 Jordan Bee [facility] URINE CULTURE 2019-05-17 15:07:00 Jordan Bee [facility] h LACTIC ACID 2019-05-17 14:58:00 Jordan Bee [facility] VBG POC 2019-05-17 14:53:00 Unknown, [facility]AT[facility] 2019-05-17 14:51:00 Unknown, [facility] BMP POC 2019-05-17 14:51:00 Unknown, Provider David [facility] TROPONIN I POC 2019-05-17 14:50:00 Unknown, Provider David [facility] BEDSIDE ULTRASOUND 2019-05-17 14:49:13 Jordan Bee alth CBC/DIFF 2019-05-17 14:22:00 Cristal, Jordan Hernandez [facility] LIVER PROFILE 2019-05-17 14:22:00 Cristal, Jordan Hernandez [facility] CBC 2019-05-17 14:22:00 Heft, Jordan Hernandez [facility] h LIPASE 2019-05-17 14:22:00 Barbara Mills [facility] ECHG EKG PROC 12 LEAD EKG; 2019-05-17 13:59:10 Doris Mcgill [facility] TRACING ONLY XRAY CHEST 2 VIEWS 2019-01-12 22:25:40 Savannah Hyatt [facility] 12 LEAD EKG 2019-01-12 20:37:29 Sang Mancilla [facility] Plan of Care Planned Activity Planned Date Details Comments Source Future Scheduled Test 2018 00:00:[address] [facility] malignant neoplasm of colon (procedure) [code = 674716216] Future Scheduled Test 2008 00:00:[address] [facility] (Yearly) [code = Breast Cancer Scrn (Yearly)] Future Scheduled Test 1989 00:00:[address] [facility] malignant neoplasm of cervix (procedure) [code = 462230913] Encounters Start End Encounter Admission Attending Care Care Encounter Source Date/Time Date/Time Type Type Clinicians Facility Department ID 2019-08-28 2019-08-28 Outpatient [facility] [id number] Hernandez 00:00:00 00:00:00 Health 2019-08-28 2019-08-28 Outpatient [facility] [id number] Hernandez 00:00:00 00:00:00 Health 2019-08-25 2019-08-25 Outpatient [facility] [id number] Hernandez 07:15:26 07:15:26 Health 2019-08-13 2019-08-13 Outpatient [facility] [id number] Hernandez 00:00:00 00:00:00 Health 2019-07-28 2019-07-28 Outpatient [facility] [id number] Hernandez 07:14:20 07:14:20 Health 2019-07-17 2019-07-17 Outpatient [facility] [id number] Hernandez 00:00:00 00:00:00 Health 2019-06-25 2019-06-25 Outpatient [facility] [id number] Hernandez 00:00:00 00:00:00 Health 2019-06-25 2019-06-25 Outpatient [facility] [id number] Hernandez 00:00:00 00:00:00 Health 2019-06-03 2019-06-03 Outpatient [facility] [id number] [place] 08:29:28 08:29:28 Health 2019-05-18 2019-05-18 Emergency [facility] [id number] Hernandez 20:29:00 20:29:00 Health 2019-05-17 2019-05-17 Emergency [facility] [id number] [place] 15:04:01 15:04:01 Health 2019-05-17 2019-05-17 Emergency [facility] [id number] Hernandez 14:03:46 14:03:46 Health 2019-01-13 2019-01-13 Emergency [facility] [id number] [place] 02:35:24 02:35:24 Health 2019-01-12 2019-01-12 Emergency [facility] [id number] Hernandez 22:16:47 22:16:47 Health 2018-08-30 2018-08-30 Emergency [facility] [id number] Hernandez 08:57:53 08:57:53 Health Results Test Description Test Time Test Results Result Source Comments Comments 12 LEAD EKG 2019-04-26 12 LEAD EKG FOR [facility] Emily is 7 Conrad Juarez ealth 09:14:21 [facility] Test Date: [id number] Name: ROCKY SCHULTZ Department: 6520Patient ID: [id number] Room: Gender: F Ham Doctor: [id number]: 1970 Requested By: ALEJANDRA RODRIGUEZ Order Number: [id number] Reading MD: Elio Grullon MeasurementsIntervals Amma Rate: 71 P: 70PR: 142 QRS: 62QRSD: 83 T: 73QT: 421 QTc: 457 Interpretive StatementsSINUS RHYTHMLEFT VENTRICULAR HYPERTROPHYNONSPECIFIC T WAVE ABNORMALITYPOOR R WAVE PROGRESSIONBASELINE ARTIFACTElectronically Signed On 05-21-2019 9:14:17 TRUCK GREASER by Elio Lucas Urine Culture 2019-05-20 09:42:00 Test Item Value Reference Range Interpretation Comme nts Urine Culture (test code = 630-4) Urogenital r[place] [address] LEAD [id number] 16:54:4712 LEAD EKG FOR [facility] Test Date: 4069-91-42Unz Name: RCOKY SCHULTZ Department: 6520Patient ID: [id number] Room: Gender: F Ham Doctor: [id number]/CPDOB: 1970 Requested By: DORIS Goldberg Number: [id number] Reading MD: Laura Stafford MeasurementsIntervals Amma Rate: 73 P: 68PR: 140 QRS: 59QRSD:81 T: 68QT: 409 QTc: 451 Interpretive StatementsSINUS RHYTHMVOLTAGE CRITERIA FOR LVHElectronically Signed On 05-17-2019 16:54:46 TRUCK GREASER [facility]VIS CONTRAST 2019-05-17 16:22:36IMPRESSION: 1. [...] By: Wesley Cabrera MD, 05/17/2019 4:[address] [facility] [id number] 15:48:00 Test Item Value Reference Range Interpretation Comments Lactic Acid (test code = 78206836) 1.5 mmol/L 0.5-2.2 Lab Interpretation (test code = Normal 55483-7) [facility] HospitalRtnpemEpxxlgnyck0170-95-82 15:48:00 Test Item Value Reference Range Interpretation Comments Color (test code = 78084253) Yellow Colorless, Straw, Yellow Clarity (test code = Clear Clear 71250141) Spec Miles, Ur (test code = 1.008 1.001-1.035 42854524) pH, Ur (test code = 01444019) 7.0 5.0-8.0 Protein, Ur (test code = Negative Negative mg/dL 08052537) Glucose, Ur (test code = Negative Negative mg/dL 39008124) Ketone, Ur (test code = Negative Negative mg/dL 77519023) Bilirubin, Ur (test code = Negative Negative mg/dL 40382200) Nitrite, Ur (test code = Positive Negative A 94311503) Leukocyte (test code = 1+ Negative mg/dL A 88980300) Blood, Ur (test code = 2+ Negative mg/dL A 86574161) RBC (test code = 42613464) 5 0- 4 /HPF H WBC (test code = 35763267) 2 0- 5 /HPF Epithelial Cell (test code = 1 <=1 /HPF 49703457) Mucous (test code = 57042640) Present None seen /HPF A Bacteria (test code = Many None seen /HPF A 35626552) Urobilinogen, Ur (test code = <1.0 <1.0 EU/dL 90180653) Lab Interpretation (test code Abnormal = 61253-7) [facility] [id number] 15:27:00 Test Item Value Reference Range Interpretation Comments Lipase (test code = 14414130) 51 U/L 11-82 Lab Interpretation (test code = Normal 69011-9) [facility] [id number] 15:27:00 Test Item Value Reference Range Interpretation Comments Bilirubin, Total (test code = 0.6 mg/dL 0.2-1.2 2885-2) Alkaline Phosphatase (test code = 101 U/L 34-104 19074824) AST (test code = 51766375) 29 U/L 13-39 Direct Bilirubin (test code = 0.1 mg/dL 0-0.2 1968-7) ALT (test code = 02627471) 15 U/L 7-52 Albumin (test code = 07163-4) 4.6 g/dL 3.7-5.3 Lab Interpretation (test code = Normal 25700-6) [facility] VBG POC docked [id number] 15:24:00 Test Item Value Reference Range Interpretation Comments pH, Neo POC (test code = 7.42 7.33-7.43 13572300) pCO2,Neo POC (test code = 41.4 38- 50 mmHg 86437224) PO2, Venous POC (BKR) (test code 82 50- 75 mm Hg H = 85101350) Ionized Calcium POC (test code = 1.09 mmol/L 1.15-1.29 L 95897499) HCO3, Neo POC (test code = 27 mmol/L 22-26 H 09967340) TCO2 POC (test code = 72962714) 28 mmol/L 21-32 Base Excess Neo POC (test code = 2 mmol/L 24505270) Shivam's Test (test code = GURU 38375000) Sample Type (test code = IVEN 58836338) Site (test code = 39600262) RRADIA % Sat, Neo POC (test code = 96 % 88002355) Lab Interpretation (test code = Abnormal 27184-3) [facility] Urine - [id number] 15:20:00 Test Item Value Reference Range Interpretation Comments Control (test code = 7172) pass (test code = 7173) negative Lab Interpretation (test code = Normal 07077-5) [facility][id number] 15:13:00 Test Item Value Reference Range Interpretation [...] 32.4 g/dL 32-36 RDW (test code = 47229-7) 41.1 fL 36.4-46.3 Platelet (test code = 777-3) 290 K/uL 150-400 Mean Platelet Volume (test code = 10.5 fL 9.4-12.4 44944-6) Percent NRBC (test code = 77571414) 0.0 % Neutrophil (test code = 770-8) 68.9 % 34-70 Lymphs (test code = 736-9) 20.5 % 20-50 Monocytes (test code = 5905-5) 8.1 % 5-12 Eos (test code = 713-8) 1.4 % 0.7-5 Basos (test code = 706-2) 0.8 % 0.1-1.2 Immature Granulocytes (test code = 0.3 % 0-0.5 46996747) Neutrophils (Absolute) (test code = 8.65 K/uL 1.56-6.13 H 53943228) Lymphs (Absolute) (test code = 2.57 K/uL 1.18-3.74 92539495) Monocytes(Absolute) (test code = 1.02 K/uL 0.24-0.36 H 96477568) Eos (Absolute) (test code = 0.17 K/uL 0.04-0.36 85832521) Baso (Absolute) (test code = 0.10 K/uL 0.01-0.08 H 62983152) Immature Grans (Abs) (test code = 0.04 K/uL 0-0.03 H 85535417) Absolute NRBC (test code = 0.00 K/uL 13142037) Lab Interpretation (test code = Abnormal 14774-3) [facility] TROPONIN I POC docked [id number] 15:02:00 Test Item Value Reference Range Interpretation Comments Troponin POC (test code = 0.01 ng/mL 0-0.08 79133907) Lab Interpretation (test code = Normal 86307-4) [facility] BMP POC docked [id number] 15:01:00 Test Item Value Reference Range Interpretation Comments Sodium POC (test code = 16037869) 136 mmol/L 136-145 Potassium POC (test code = 5.2 mmol/L 3.5-5.1 H 05452325) Chloride POC (test code = 102 mmol/L 98-107 17388368) TCO2 POC (test code = 13302341) 28 mmol/L 21-32 Urea Nitrogen POC (test code = 12 mg/dL 7-18 32598090) Glucose POC (test code = 52795828) 109 mg/dL 74-106 H Hemoglobin POC (test code = 16.3 g/dL 12-16 H 38110023) Hematocrit POC (test code = 48.0 % 37-47 H 49237479) Lab Interpretation (test code = Abnormal 76684-7) [facility] CREATININE POC docked [id number] 14:57:00 Test Item Value Reference Range Interpretation Comments Creatinine POC (test code = 0.8 mg/dL 0.6-1.3 83673698) GFR, Estimated (test code = 86 >=90 mL/min/1.73 m2 L 77749957) Lab Interpretation (test code = Abnormal 36157-3) [facility] [id number] 14:49:13Jordan Bee ResidentMD 05/17/2019 8:34 PMBedside UltrasoundDate/Time: [...] gallbladder wall thickening. Performed and interpreted by [place] [address] LEAD [id number] 11:36:3912 LEAD EKG FOR [facility]P [facility] Test Date: 4656-02-21Mrx Name: ROCKY SCHULTZ Department: 6520Patient ID: [id number] Room: Gender: Ham Doctor: DJOHNSONDOB: 1970 Requested By: SANG Rubio Number: [id number] Reading MD: Elio Grullon MeasurementsIntervals Amma Rate: 72 P: 58PR: 125 QRS: 65QRSD: 76 T: 67QT: 382 QTc: 418 Interpretive StatementsSINUS RHYTHMMINIMAL VOLTAGE CRITERIA FOR LVH, CONSIDER NORMAL VARIANTElectronically Signed On 01-16-2019 11:36:35 CDT by Elio [facility]Qu[facility] CenterAY CHEST 2 [id number] 22:39:50IMPRESSION: 1. No acute abnormality. This [facility] radiology report is a preliminary resident dictation [...] No acute abnormality.IMPRESSIONIMPRESSION: 1. No acute abnormality.This [facility] radiology report is a preliminary resident dictation untilfinalized by an attending. Changes to this preliminary report may occurin an additional preliminary or finalized version.I have reviewed the study and agree with the findings in this report.Signed By: Gamal Santos M.D., 01/12/2019 10:[facility] [address]
[2019-10-30] MEDS ORDERED: METHYLPREDNISOLONE 125 MG INJ ONE (15:19)
[2019-10-30] MEDS ORDERED: KETOROLAC 30 MG/ML INJ ONE (15:19)
[2019-10-30] MEDS ORDERED: METHOCARBAMOL 1,000 MG/10 ML VIAL IV ONE (15:19)
[2019-10-30] MEDS ORDERED: NA CHLORIDE 0.9% 100 ML IV ONE (15:20)
--- NOTE | 2019-10-30 15:45 | EDPHYS ---
Physician Documentation [facility] Name: Hellen Negron Age: 49 yrs Sex: Female : 1970 Arrival Date: 10/30/2019 Time: 13:53 Bed 28 Private MD: ED Physician Garcia Adams HPI: 10/29 16:35 This 49 yrs old Female presents to ER via Ambulatory with complaints of Leg kdr Pain. 16:35 The patient presents with pain, that is chronic, tenderness. The complaints affect the kdr , . Context: The problem was sustained at home, resulted from an unknown cause, the patient can fully bear weight. 16:36 The patient's problem is reported as pain down the back of both legs similar to her kdr prior sciatic pain. Onset: The symptoms/episode began/occurred gradually, 2 week(s) ago. Duration: The episode is continuous, the symptoms became worse 2 week(s) ago, the symptoms became persistent 2 week(s) ago. Context: occurred at home. The symptoms are alleviated by laying, The symptoms are aggravated by standing, walking. Associated signs and symptoms: The patient has no apparent associated signs or symptoms. Associated signs and symptoms: Pertinent negatives: ataxia, blurred vision, diarrhea, Urinary control. Severity of symptoms: At their worst the symptoms were mild in the emergency department the symptoms are unchanged. Patient's baseline: Neuro: alert and fully oriented, Motor: no deficits, Ambulation: walks without assistance, Speech: normal, The patient has a previous history of. The patient has experienced similar episodes in the past, a few times, but today's symptoms are worse, more painful. The patient has not recently seen a physician. 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 - Social history:: Smoking status: Patient reports the use of cigarette tobacco products, smokes one-half pack cigarettes per day. ROS: 16:36 Constitutional: Negative for fever, chills, and weight loss, Eyes: Negative for injury, kdr pain, redness, and discharge, Neck: Negative for injury, pain, and swelling, Cardiovascular: Negative for chest pain, palpitations, and edema, Respiratory: Negative for shortness of breath, cough, wheezing, and pleuritic chest pain, Abdomen/GI: Negative for abdominal pain, nausea, vomiting, diarrhea, and constipation, : Negative for injury, bleeding, discharge, and swelling, MS/Extremity: Negative for injury and deformity, Skin: Negative for injury, rash, and discoloration, Neuro: Negative for headache, weakness, numbness, tingling, and seizure activity. Psych: Negative for depression, anxiety, suicide ideation, homicidal ideation, and hallucinations, Allergy/Immunology: Negative for hives, rash, and allergies, Endocrine: Negative for neck swelling, polydipsia, polyuria, polyphagia, and marked weight changes, Hematologic/Lymphatic: Negative for swollen nodes, abnormal bleeding, and unusual bruising. 16:36 Back: Positive for pain with movement, of the left low back. Exam: 16:36 Constitutional: This is a well developed, well nourished patient who is awake, alert, kdr and in no acute distress. Head/Face: Normocephalic, atraumatic. Eyes: Pupils equal round and reactive to light, extra-ocular motions intact. Lids and lashes normal. Conjunctiva and sclera are non-icteric and not injected. Cornea within normal limits. Periorbital areas with no swelling, redness, or edema. Neck: Trachea midline, no thyromegaly or masses palpated, and no cervical lymphadenopathy. Supple, full range of motion without nuchal rigidity, or vertebral point tenderness. No Meningismus. Chest/axilla: Normal chest wall appearance and motion. Nontender with no deformity. No lesions are appreciated. Cardiovascular: Regular rate and rhythm with a normal S1 and S2. No gallops, murmurs, or rubs. Normal PMI, no JVD. No pulse deficits. Respiratory: Lungs have equal breath sounds bilaterally, clear to auscultation and percussion. No rales, rhonchi or wheezes noted. No increased work of breathing, no retractions or nasal flaring. Abdomen/GI: Soft, non-tender, with normal bowel sounds. No distension or tympany. No guarding or rebound. No evidence of tenderness throughout. Back: No spinal tenderness. No costovertebral tenderness. Full range of motion. Skin: Warm, dry with normal turgor. Normal color with no rashes, no lesions, and no evidence of cellulitis. MS/ Extremity: Pulses equal, no cyanosis. Neurovascular intact. Full, normal range of motion. Neuro: Awake and alert, GCS 15, oriented to person, place, time, and situation. Cranial nerves II-XII grossly intact. Motor strength 5/5 in all extremities. Sensory grossly intact. Cerebellar exam normal. Normal gait. Psych: Awake, alert, with orientation to person, place and time. Behavior, mood, and affect are within normal limits. 16:44 Radiologist reports: NA kdr Vital Signs: 14:05 BP 156 / 78; Pulse 75; Resp 15 S; Temp 97.3(TE); Pulse Ox 99% on R/A; Weight 70.31 kg ca1 (R); Height 5 ft. 4 in. (162.56 cm) (R); 15:00 BP 145 / 71; Pulse 67; Resp 18; Pulse Ox 100% on R/A; vc 16:00 BP 128 / 61; Pulse 84; Resp 18; Pulse Ox 98% on R/A; vc 14:05 Body Mass Index 26.61 (70.31 kg, 162.56 cm) ca1 MDM: 15:45 Patient medically screened. kdr 16:36 Data reviewed: vital signs, nurses notes. Counseling: I had a detailed discussion with kdr the patient and/or guardian regarding: the historical points, exam findings, and any diagnostic results supporting the discharge/admit diagnosis, the need for outpatient follow up. Administered Medications: 15:20 Drug: TORadol - Ketorolac 15 mg Route: IVP; Site: right antecubital; vc 15:47 Follow up: Response: No adverse reaction vc 15:20 Drug: SOLU-Medrol 125 mg Route: IVP; Site: right antecubital; vc 15:47 Follow up: Response: No adverse reaction vc 15:20 Drug: Robaxin 1 grams Route: IVPB; Infused Over: 1 hrs; Site: right antecubital; vc 16:20 Follow up: IV Status: Completed infusion; IV Intake: 100ml vc Disposition: 10/30/19 15:45 Discharged to Home. Impression: Low back pain, Sciatica, left side, Sciatica, right side. - Condition is Stable. - Discharge Instructions: Musculoskeletal Pain, Back Pain, Adult, [id number], Sciatica, [id number]. - Prescriptions for Ibuprofen 600 mg Oral Tablet - take 1 tablet by ORAL route every 6 hours As needed take with food; 30 tablet. Cyclobenzaprine 10 mg Oral Tablet - take 1 tablet by ORAL route every 8 hours As needed; 12 tablet. Medrol (Tony) 4 mg Oral Tablets, Dose Pack - take 1 tablet by ORAL route as directed - follow package instructions; 1 packet. - Medication Reconciliation Form, Thank You Letter form. - Follow up: Private Physician; When: 2 - 3 days; Reason: If symptoms return, Further diagnostic work-up, Recheck today's complaints, Continuance of care, Re-evaluation by your physician. - Problem is an acute exacerbation. - Symptoms have improved. Signatures: Garcia Adams MD MD kdr Jarrod, Alana RN RN ca1 Toyin Gaona RN RN vc Corrections: (The following items were deleted from the chart) 16:28 15:45 10/30/2019 15:45 Discharged to Home. Impression: Low back pain; Sciatica, left vc side; Sciatica, right side. Condition is Stable. Forms are Medication Reconciliation Form, Thank You Letter, Antibiotic Education, Prescription Opioid Use. Follow up: Private Physician; When: 2 - 3 days; Reason: If symptoms return, Further diagnostic work-up, Recheck today's complaints, Continuance of care, Re-evaluation by your physician. Problem is an acute exacerbation. Symptoms have improved. kdr
--- NOTE | 2019-10-30 15:45 | ER ---
Nurse's Notes [facility] Name: Hellen Negron Age: 49 yrs Sex: Female : 1970 Arrival Date: 10/30/2019 Time: 13:53 Bed 28 Private MD: Diagnosis: Low back pain;Sciatica, left side;Sciatica, right side Presentation: 10/29 14:05 Chief complaint: Patient states: L lower back pain radiating to the L leg down to the L ca1 foot x 2 weeks. Worse when walking. History of sciatica. Denies urinary symptoms. Coronavirus screen: Client denies travel out of the [place] in the last 14 days. At this time, the client does not indicate any symptoms associated with coronavirus-19. Ebola Screen: Patient negative for fever greater than or equal to 101.5 degrees Fahrenheit, and additional compatible Ebola Virus Disease symptoms Patient denies exposure to infectious person. Patient denies travel to an Ebola-affected area in the 21 days before illness onset. No symptoms or risks identified at this time. Initial Sepsis Screen: Does the patient meet any 2 criteria? No. Patient's initial sepsis screen is negative. Does the patient have a suspected source of infection? No. Patient's initial sepsis screen is negative. Risk Assessment: Do you want to hurt yourself or someone else? Patient reports no desire to harm self or others. Onset of symptoms was October 30, 2019. 14:05 Method Of Arrival: Ambulatory ca1 14:05 Acuity: MADDIE 4 ca1 Triage Assessment: 14:19 General: Appears in no apparent distress. Behavior is calm, cooperative, appropriate vc for age. Pain: Complains of pain in lumbar area and sacrum Pain radiates to right leg and left leg Pain currently is 10 out of 10 on a pain scale. Quality of pain is described as sharp, Pain began 2 weeks ago Is continuous, Alleviated by Pressure applied to left hip. 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 - Social history:: Smoking status: Patient reports the use of cigarette tobacco products, smokes one-half pack cigarettes per day. Screenin:19 Abuse screen: Denies threats or abuse. Nutritional screening: No deficits noted. vc Tuberculosis screening: No symptoms or risk factors identified. Fall Risk None identified. Assessment: 14:22 General: Appears in no apparent distress. uncomfortable, Behavior is calm, cooperative, vc appropriate for age. Pain: Complains of pain in sacrum and lumbar area Pain radiates to left leg and right leg. Neuro: Level of Consciousness is awake, alert, obeys commands, Oriented to person, place, time, situation. Cardiovascular: Capillary refill < 3 seconds Patient's skin is warm and dry. Respiratory: Airway is patent Respiratory effort is even, unlabored, Respiratory pattern is regular, symmetrical. GI: No signs and/or symptoms were reported involving the gastrointestinal system. : No signs and/or symptoms were reported regarding the genitourinary system. Derm: Skin is intact, is healthy with good turgor, Skin temperature is warm. Musculoskeletal: Reports pain in medial aspect of left thigh. 15:15 Reassessment: Patient appears in no apparent distress at this time. Patient and/or vc family updated on plan of care and expected duration. Pain level reassessed. Patient is alert, oriented x 3, equal unlabored respirations, skin warm/dry/pink. 15:56 Reassessment: Discharge pending, fluids infusing. vc 16:04 Reassessment: Patient appears in no apparent distress at this time. Patient and/or vc family updated on plan of care and expected duration. Pain level reassessed. Patient is alert, oriented x 3, equal unlabored respirations, skin warm/dry/pink. Patient states feeling better. Patient states symptoms have improved. Vital Signs: 14:05 BP 156 / 78; Pulse 75; Resp 15 S; Temp 97.3(TE); Pulse Ox 99% on R/A; Weight 70.31 kg ca1 (R); Height 5 ft. 4 in. (162.56 cm) (R); 15:00 BP 145 / 71; Pulse 67; Resp 18; Pulse Ox 100% on R/A; vc 16:00 BP 128 / 61; Pulse 84; Resp 18; Pulse Ox 98% on R/A; vc 14:05 Body Mass Index 26.61 (70.31 kg, 162.56 cm) ca1 ED Course: 13:53 Patient arrived in ED. ag5 14:07 Triage completed. ca1 14:08 Arm band placed on right wrist. ca1 14:11 Toyin Gaona, RN is Primary Nurse. vc 14:11 Garcia Adams MD is Attending Physician. kdr 14:21 Patient has correct armband on for positive identification. Placed in gown. Bed in low vc position. Call light in reach. Side rails up X 1. Pulse ox on. NIBP on. 16:28 No provider procedures requiring assistance completed. IV discontinued, intact, vc bleeding controlled, No redness/swelling at site. Pressure dressing applied. Administered Medications: 15:20 Drug: TORadol - Ketorolac 15 mg Route: IVP; Site: right antecubital; vc 15:47 Follow up: Response: No adverse reaction vc 15:20 Drug: SOLU-Medrol 125 mg Route: IVP; Site: right antecubital; vc 15:47 Follow up: Response: No adverse reaction vc 15:20 Drug: Robaxin 1 grams Route: IVPB; Infused Over: 1 hrs; Site: right antecubital; vc 16:20 Follow up: IV Status: Completed infusion; IV Intake: 100ml vc Intake: 16:20 IV: 100ml; Total: 100ml. vc Outcome: 15:45 Discharge ordered by . kdr 16:28 Discharged to home ambulatory. vc 16:28 Condition: good 16:28 Discharge instructions given to patient, Instructed on discharge instructions, follow up and referral plans. medication usage, Demonstrated understanding of instructions, follow-up care, medications, Prescriptions given X 3. 16:28 Patient left the ED. vc Signatures: Garcia Adams MD MD kdr Alana Garay RN RN ca1 [place] ag5 Toyin Gaona RN RN vc
[2019-10-30 16:33] VITALS: TEMP 97.3
[2019-10-30 16:36] VITALS: BP 128/61; O2SAT 98
== END 2019-10-30 16:28 | disposition home or self-care (01) ==
LOC: ER 13:52
DX: M54.32 Sciatica, left side (principal); M54.31 Sciatica, right side; I10 Essential (primary) hypertension; F17.210 Nicotine dependence, cigarettes, uncomplicated
CPT/HCPCS: 96365; 96375; 99283; J2800; J2930